=== PATIENT | male | born 1940 | race Two or more races ===

== ENCOUNTER → 2016-07-21 | Outpatient (CLI) | payer MEDICARE ==
[2016-07-21 09:09] LABS: CHOLESTEROL 187.35 mg/dL (0-200); Direct HDL 79 mg/dL (>40); TRIGLYCERIDES 316 mg/dL (<150)
[2016-07-21 09:20] LABS: DIRECT LDL 48 mg/dL (<100)
[2016-07-21 09:25] LABS: VLDL CHOLESTEROL 63.2 mg/dL (10-31)
== END ==
LOC: LAB 08:43
PROVIDERS: ATTEND Family Medicine Geriatric Medicine
DX: E78.5 Hyperlipidemia, unspecified (principal)
CPT/HCPCS: 36415; 80061

== ENCOUNTER → 2016-10-06 | Outpatient (CLI) | payer MEDICARE ==
--- NOTE | 2016-10-06 12:46 | RADIOLOGY REPORT (SQ) ---
EXAM DESCRIPTION: SHOULDER LEFT 2 OR MORE VIEWS COMPLETED DATE/TIME: 10/06/2016 12:24 pm REASON FOR STUDY: L SHOULDER PAIN M25.512 PAIN IN LEFT SHOULDER COMPARISON: None. NUMBER OF VIEWS: Three views. TECHNIQUE: Internal rotation, external rotation, and Y view images acquired of the left shoulder. LIMITATIONS: None. FINDINGS: MINERALIZATION: Normal. BONES: No fracture or dislocation. There is bony overgrowth at the acromioclavicular joint. JOINTS: No dislocation. VISUALIZED LUNGS AND RIBS: No pneumothorax. No rib fracture. SOFT TISSUES: No radiopaque foreign body. OTHER: No other significant finding. IMPRESSION: Degenerative joint changes involving the acromioclavicular joint. There is no acute abn ormality. TECHNICAL DOCUMENTATION: JOB ID: [id number] [employer]- All Rights Reserved
== END ==
LOC: RAD 12:04
PROVIDERS: ATTEND Family Medicine Geriatric Medicine
DX: M25.512 Pain in left shoulder (principal); M19.012 Primary osteoarthritis, left shoulder

== ENCOUNTER → 2017-01-07 | Outpatient (CLI) | payer MEDICARE ==
--- NOTE | 2017-01-07 13:17 | RADIOLOGY REPORT (SQ) ---
EXAM DESCRIPTION: CERV SP 4 OR 5 VIEWS COMPLETED DATE/TIME: 01/07/2017 11:40 am REASON FOR STUDY: NECK PAIN COMPARISON: None. NUMBER OF VIEWS: Five views. TECHNIQUE: AP, lateral, obliques and odontoid radiographic images acquired of the cervical spine. LIMITATIONS: None. FINDINGS: MINERALIZATION: Normal. ALIGNMENT: Anatomic. VERTEBRAE: Vertebral bodies of normal height. DISCS: Mild disc space loss of height at C3-4, C4-5, C5-6, and C6-7 FORAMINA: On the right side, there is mild foraminal narrowing at C3-4, C5-6, and C6-7 from facet and uncovertebral hypertrophy. On the left side, mild C4-5, and C6-7 foraminal narrowing is present from facet and uncovertebral hyp ertrophy. LATERAL AND POSTERIOR ELEMENTS: Facets, lateral masses and spinous processes without significant find ings. HARDWARE: None in the spine. SOFT TISSUES: No masses or calcifications. Lung apices clear. OTHER: No other significant finding. IMPRESSION: Mild degenerative changes as above TECHNICAL DOCUMENTATION: JOB ID: [id number] [employer]- All Rights Reserved
== END ==
LOC: RAD 11:20
PROVIDERS: ATTEND Family Medicine Geriatric Medicine
DX: M54.2 Cervicalgia (principal)
CPT/HCPCS: 72050

== ENCOUNTER → 2017-04-06 | Outpatient (CLI) | payer MEDICARE ==
[2017-04-06 09:15] LABS: ABSOLUTE EOSINOPHILS # (AUTO) 0.1 10^3/uL (0.0-0.6); ABSOLUTE LYMPHOCYTES (AUTO) 1.2 10^3/uL (0.5-4.7); ABSOLUTE MONOCYTES (AUTO) 0.6 10^3/uL (0.1-1.4); ABSOLUTE NEUT (AUTO) 3.9 10^3/uL (1.7-8.2); BASOPHILS % (AUTO) 0.8 % (0-2); EOSINOPHILS % (AUTO) 2.2 % (0-6); HEMATOCRIT 38.8 % (37.9-51.0); HEMOGLOBIN 12.7 g/dL (13.5-17.0); HGB HCT DIFFERENCE -0.7; LYMPHOCYTES % (AUTO) 19.7 % (13-45); MEAN CORPUSCULAR HGB CONC 32.7 g/dL (32.0-36.0); MEAN CORPUSCULAR VOLUME 83 fl (80-97); MONOCYTES % (AUTO) 10.7 % (3-13); RED CELL DISTRIBUTION WIDTH 16.2 % (11.5-14.0); SEGMENTED NEUTROPHILS % (AUTO) 66.6 % (42-78); WHITE BLOOD COUNT 5.9 10^3/uL (4.0-10.5)
[2017-04-06 09:44] LABS: ALANINE AMINOTRANSFERASE 21 U/L (21-72); ALBUMIN 4.1 g/dL (3.5-5.0); ALKALINE PHOSPHATASE 75 U/L (38-126); ANION GAP 10 (5-19); ASPARTATE AMINO TRANSFERASE 21 U/L (17-59); BILIRUBIN,DIRECT 0.3 mg/dL (0.0-0.4); BILIRUBIN,TOTAL 0.6 mg/dL (0.2-1.3); BLOOD UREA NITROGEN 9 mg/dL (7-20); CALCIUM 9.1 mg/dL (8.4-10.2); CARBON DIOXIDE 25 mmol/L (22-30); CHLORIDE 106 mmol/L (98-107); CHOLESTEROL 189.59 mg/dL (0-200); CREATININE RESULT 0.85 mg/dL (0.52-1.25); Direct HDL 91 mg/dL (>40); GLUCOSE 90 mg/dL (75-110); POTASSIUM 4.2 mmol/L (3.6-5.0); SODIUM 140.6 mmol/L (137-145); TOTAL PROTEIN 6.3 g/dL (6.3-8.2); TRIGLYCERIDES 147 mg/dL (<150); URIC ACID 5.9 mg/dL (3.5-8.5)
[2017-04-06 09:55] LABS: DIRECT LDL 81 mg/dL (<100)
[2017-04-07 09:40] LABS: CREATININE URINE 95.4 mg/dL (Not Estab.); MICROALBUMIN URINE 3.6 ug/mL (Not Estab.)
== END ==
LOC: LAB 08:47
PROVIDERS: ATTEND Family Medicine Geriatric Medicine
DX: I10 Essential (primary) hypertension (principal); E78.5 Hyperlipidemia, unspecified; E11.9 Type 2 diabetes mellitus without complications; Z79.899 Other long term (current) drug therapy; K21.0 Gastro-esophageal reflux disease with esophagitis; M19.90 Unspecified osteoarthritis, unspecified site
CPT/HCPCS: 36415; 80053; 80061; 82043; 82570; 83036; 84443; 84550; 85025

== ENCOUNTER → 2017-04-20 | Outpatient (CLI) | payer MEDICARE ==
--- NOTE | 2017-04-20 12:53 | RADIOLOGY REPORT (SQ) ---
EXAM DESCRIPTION: CHEST PA/LATERAL COMPLETED DATE/TIME: 04/20/2017 11:08 am REASON FOR STUDY: COUGH,FEVER,COPD COMPARISON: 04/03/2016 EXAM PARAMETERS: NUMBER OF VIEWS: two views TECHNIQUE: Digital Frontal and Lateral radiographic views of the chest acquired. RADIATION DOSE: NA LIMITATIONS: none FINDINGS: LUNGS AND PLEURA: The lungs are hyperexpanded. There are no infiltrates or effusions. Th ere is no mass. MEDIASTINUM AND HILAR STRUCTURES: No masses or contour abnormalities. HEART AND VASCULAR STRUCTURES: Heart normal size. No evidence for failure. BONES: No acute findings. HARDWARE: None in the chest. OTHER: No other significant finding. IMPRESSION: Chronic lung changes with no acute cardiopulmonary disease. TECHNICAL DOCUMENTATION: JOB ID: [id number] [employer]- All Rights Reserved
== END ==
LOC: OD 10:57
PROVIDERS: ATTEND Family Medicine Geriatric Medicine
DX: R50.9 Fever, unspecified (principal); J44.9 Chronic obstructive pulmonary disease, unspecified; R05 Cough
CPT/HCPCS: 71020

== ENCOUNTER 2017-07-13 22:34 | Emergency (ER) | payer MEDICARE ==
[2017-07-13] MEDS ORDERED: ONDANSETRON HCL INJ/PF 4 MG/2 ML SDV IV ONE (23:57)
[2017-07-14 00:16] LABS: ABSOLUTE LYMPHOCYTES (AUTO) 0.9 10^3/uL (0.5-4.7); ABSOLUTE MONOCYTES (AUTO) 0.6 10^3/uL (0.1-1.4); ABSOLUTE NEUT (AUTO) 4.5 10^3/uL (1.7-8.2); BASOPHILS % (AUTO) 0.5 % (0-2); EOSINOPHILS % (AUTO) 0.5 % (0-6); HEMATOCRIT 41.9 % (37.9-51.0); LYMPHOCYTES % (AUTO) 14.8 % (13-45); MEAN CORPUSCULAR HEMOGLOBIN 28.5 pg (27.0-33.4); MEAN CORPUSCULAR HGB CONC 33.4 g/dL (32.0-36.0); MEAN CORPUSCULAR VOLUME 85 fl (80-97); MONOCYTES % (AUTO) 9.6 % (3-13); PLATELET COUNT 126 10^3/uL (150-450); RED BLOOD COUNT 4.92 10^6/uL (4.35-5.55); RED CELL DISTRIBUTION WIDTH 18.3 % (11.5-14.0); SEGMENTED NEUTROPHILS % (AUTO) 74.6 % (42-78); TOTAL CELLS COUNTED % (AUTO) 100 %
[2017-07-14] MEDS ORDERED: HYDROMORPHONE HCL INJ/PF 2 MG/ML AMPULE IV ONE (00:27)
[2017-07-14 00:28] LABS: ALANINE AMINOTRANSFERASE 32 U/L (21-72); ALBUMIN 4.5 g/dL (3.5-5.0); ALKALINE PHOSPHATASE 84 U/L (38-126); ANION GAP 14 (5-19); ASPARTATE AMINO TRANSFERASE 42 U/L (17-59); BILIRUBIN,DIRECT 0.2 mg/dL (0.0-0.4); BILIRUBIN,TOTAL 0.8 mg/dL (0.2-1.3); BLOOD UREA NITROGEN 14 mg/dL (7-20); CALCIUM 9.4 mg/dL (8.4-10.2); CARBON DIOXIDE 25 mmol/L (22-30); CHLORIDE 99 mmol/L (98-107); CREATINE KINASE 146 U/L (55-170); GLUCOSE 97 mg/dL (75-110); POTASSIUM 3.8 mmol/L (3.6-5.0); SODIUM 137.7 mmol/L (137-145); TOTAL PROTEIN 6.4 g/dL (6.3-8.2)
[2017-07-14] MEDS ORDERED: PANTOPRAZOLE SODIUM 40 MG VIAL IV ONE (00:28)
--- NOTE | 2017-07-14 00:34 | ER Document Report ---
ED General - General Chief Complaint: Chest Pain Stated Complaint: CHEST PAIN Time Seen by Provider: 07/14/17 00:01 Mode of Arrival: Ambulatory Information source: Patient, Relative TRAVEL OUTSIDE OF THE [place] IN LAST 30 DAYS: No - HPI Notes: Patient is a 76-year-old male history of COPD, hypertension, one half of stomach removed due to stomach ulcer in 1967, stent left leg after trauma, presents to the emergency department with report that he drank 1-1/2 bottles of wine yesterday and developed some abdominal pain. He took Advil for his abdominal pain which made the abdominal pain worse and then he vomited today without blood after eating at about noon. The patient has had increased belching. He may have slight constipation and reports no bowel movement for the past 2 days. He describes a slight bloated sensation. He reports the pain is mainly in the abdominal region but radiates to the lower chest associated with the belching. History of colonoscopy 4 years ago [place] where they removed polyps. He also had a upper endoscopy which he thinks was negative 4 years ago. The patient is not taking acid blockers beyond taking Gas-X and [place]. Medications losartan, but he has not had any for the past 2 months as he question whether not this was causing his recurrent abdominal discomfort. He is also on Spiriva, aspirin, Ventolin, Advil and Gas-X and [place].. - Related Data Allergies/Adverse Reactions: No Known Allergies Allergy (Unverified 07/14/17 05:56) Past Medical History - General Information source: Patient - Social History Smoking Status: Former Smoker Chew tobacco use (# tins/day): No Frequency of alcohol use: Heavy Drug Abuse: None Lives with: Family Family History: Reviewed & Not Pertinent Patient has suicidal ideation: No Patient has homicidal ideation: No - Past Medical History Cardiac Medical History: Reports: Hx Hypercholesterolemia, Hx Hypertension Pulmonary Medical History: Reports: Hx COPD Renal/ Medical History: Denies: Hx Peritoneal Dialysis - Immunizations Hx Diphtheria, Pertussis, Tetanus Vaccination: Yes Review of Systems - Review of Systems Notes: REVIEW OF SYSTEMS: CONSTITUTIONAL : Denies fever, chills, or sweats. EENT: Denies eye, ear, throat, or mouth pain or symptoms. Denies nasal or sinus congestion or discharge. Denies throat, tongue, or mouth swelling or difficulty swallowing. CARDIOVASCULAR: Denies palpitations or racing or irregular heart beat. Denies ankle edema. RESPIRATORY: Denies cough, cold, or chest congestion. Denies shortness of breath, difficulty breathing, or wheezing. GASTROINTESTINAL: Denies abdominal distention. Denies diarrhea. Denies blood in vomitus, stools, or per rectum. Denies black, tarry stools. Mild chronic constipation GENITOURINARY: Denies difficulty urinating, painful urination, burning, frequency, blood in urine, or discharge. MUSCULOSKELETAL: Denies back or neck pain or stiffness. Denies joint pain or swelling. SKIN: Denies rash, lesions or sores. HEMATOLOGIC : Denies easy bruising or bleeding. LYMPHATIC: Denies swollen, enlarged glands. NEUROLOGICAL: Denies confusion or altered mental status. Denies passing out or loss of consciousness. Denies dizziness or lightheadedness. Denies headache. Denies weakness or paralysis or loss of use of either side. Denies problems with gait or speech. Denies sensory loss, numbness, or tingling. Denies seizures. PSYCHIATRIC: Denies anxiety or stress. Denies depression, suicidal ideation, or homicidal ideation. ALL OTHER SYSTEMS REVIEWED AND NEGATIVE. Dictation was performed using [employer] voice recognition software Physical Exam - Vital signs Vitals: Temp Pulse Resp BP Pulse Ox 98.0 F 97 20 172/104 H 97 07/13/17 22:53 07/13/17 22:53 07/13/17 22:53 07/13/17 22:53 07/13/17 22:53 - Notes Notes: PHYSICAL EXAMINATION: GENERAL: Well-appearing, well-nourished and in moderate discomfort mainly complaining of abdominal pain. HEAD: Atraumatic, normocephalic. EYES: Pupils equal round and reactive to light, extraocular movements intact, sclera anicteric, conjunctiva are normal. ENT: Nares patent, oropharynx clear without exudates. Moist mucous membranes. NECK: Normal range of motion, supple without lymphadenopathy LUNGS: Breath sounds clear to auscultation bilaterally and equal. No wheezes rales or rhonchi. HEART: Regular rate and rhythm with 1/6 systolic ejection murmur best auscultated over the apex. ABDOMEN: Soft, nondistended abdomen. No guarding, no rebound. No masses appreciated. Tender mainly through the upper abdomen more midline. Patient has a surgical scar to the right of midline upper abdomen from previous partial gastrectomy. Musculoskeletal: Normal range of motion, no pitting or edema. No cyanosis. NEUROLOGICAL: Cranial nerves grossly intact. Normal speech, normal gait. Normal sensory, motor exams PSYCH: Normal mood, normal affect. SKIN: Warm, Dry, normal turgor, no rashes or lesions noted. Course - Re-evaluation Re-evalutation: 07/14/17 00:35 Patient was counseled about his drinking. He denied any history of DTs. Patient was given Zofran for nausea and was given IV Protonix and Dilaudid for pain and acid reduction with improvement. 07/14/17 01:45 Urinalysis showed mild ketosis. Patient was given IV fluids. 07/14/17 06:36 Patient denied having any further chest pain, but his blood pressure remained elevated 180s-190s systolic over 90s-100 diastolic. Initial troponin was 0.03, but a repeat troponin IV hours later was 0.24, raising question of non-STEMI. On repeat exam patient Describes no chest pain. Patient was given aspirin by mouth, and he usually takes aspirin daily. The patient was given metoprolol 5 mg IV and blood pressure was stable. Patient was given metoprolol 25 mg p.o. Patient was given 1 inch nitroglycerin paste. Ativan 1 mg IV given, Although patient showed no obvious DTs. Discussion was undertaken with the patient and his family and they were in agreement with transfer to a facility with interventional cardiology capabilities, which are not available at this facility. Discussion was undertaken with Dr. Hernandez, who accepted the patient in transfer to [facility]. Stool guaiac was sent. No obvious STEMI. no anemia or Evidence for pancreatitis, or hepatitis. No evidence for pneumonia or congestive heart failure. 07/14/17 06:40 - Vital Signs Vital signs: Temp Pulse Resp BP Pulse Ox 98.0 F 97 14 177/98 H 96 07/13/17 22:53 07/13/17 22:53 07/14/17 06:04 07/14/17 06:04 07/14/17 06:04 - Laboratory Result Diagrams: 07/13/17 23:55 07/13/17 23:55 Laboratory results interpreted by me: 07/13/17 07/14/17 23:55 00:36 RDW 18.3 H Plt Count 126 L Urine Ketones TRACE H - EKG Interpretation by Me EKG shows normal: Sinus rhythm Additional EKG results interpreted by me: 07/14/17 00:34 EKG as interpreted by me showed normal sinus rhythm heart rate of 91. There is no gross evidence for acute [place] or ischemia noted. There is no significant change from previous EKG reviewed from 06/08/15. Critical Care Note - Critical Care Note Total time excluding time spent on procedures (mins): 50 Discharge - Discharge Clinical Impression: Non-STEMI (non-ST elevated myocardial infarction), Elevated troponin, Medical non-compliance Gastritis Qualifiers: Gastritis type: unspecified gastritis Chronicity: acute Gastritis bleeding: without bleeding Qualified Code(s): K29.00 - Acute gastritis without bleeding Vomiting Qualifiers: Vomiting type: unspecified Vomiting Intractability: non-intractable Nausea presence: with nausea Qualified Code(s): R11.2 - Nausea with vomiting, unspecified Chest pain Qualifiers: Chest pain type: unspecified Qualified Code(s): R07.9 - Chest pain, unspecified Hypertension Qualifiers: Hypertension type: essential hypertension Qualified Code(s): I10 - Essential ( primary) hypertension Condition: Stable Disposition: [facility] Referrals: UMU QUIROZ MD [Primary Care Provider] - Follow up as needed
[2017-07-14 00:40] LABS: CREATINE KINASE MB 3.05 ng/mL (<4.55); TROPONIN I 0.031 ng/mL
[2017-07-14 00:45] LABS: LIPASE 121.9 U/L (23-300)
[2017-07-14 00:46] LABS: ALCOHOL < 10 mg/dL (NONE DETECTED)
[2017-07-14 01:11] LABS: APPEARANCE,URINE CLEAR; BILIRUBIN,URINE NEGATIVE (NEGATIVE); COLOR,URINE STRAW; GLUCOSE, URINE NEGATIVE (NEGATIVE); KETONES,URINE TRACE mg/dL (NEGATIVE); LEUKOCYTE ESTERASE,URINE NEGATIVE (NEGATIVE); NITRITE,URINE NEGATIVE (NEGATIVE); PROTEIN,URINE NEGATIVE (NEGATIVE); URINE SPECIFIC GRAVITY 1.005; UROBILINOGEN,URINE NEGATIVE mg/dL (<2.0)
[2017-07-14] MEDS ORDERED: NORMAL SALINE 1000 ML 1,000 ML IV ONE (01:14)
--- NOTE | 2017-07-14 02:22 | RADIOLOGY REPORT (SQ) ---
EXAM DESCRIPTION: CT ABD/PELVIS WITH IV ONLY CLINICAL HISTORY: 76 years Male, abd pain, vomiting COMPARISON: 15 TECHNIQUE: 64 mL Isovue-370 contrast. Coronal and sagittal reformat. This exam was performed according to our departmental dose-optimization program, which includes automated exposure control, adjustment of the mA and/or kV according to patient size and/or use of iterative reconstruction technique. FINDINGS: No acute findings. No free fluid. Normal appendix. Left iliac stent. 1.7 cm diameter right common iliac aneurysm. Atherosclerosis. Small coronary artery calcification. Small right renal scar 2.8 cm subpleural cyst of the posterior right lung base. 7.3 cm diameter prostate. Osteotomy plate and screw fixation of the left paracentral posterior pelvic bone. Moderate L5-S1 disc desiccation. Inferior thorax, liver, gallbladder, pancreas, spleen, adrenals, renal system, gastrointestinal tract, pelvic organs, lymphatics, and musculoskeleton appear otherwise unremarkable. IMPRESSION: No acute findings. 7.3 cm enlarged prostate. 1.7 cm diameter right common iliac artery aneurysm.
[2017-07-14] MEDS ORDERED: FAMOTIDINE 20 MG TABLET PO ONE (02:24)
[2017-07-14] MEDS ORDERED: MAG HYDROX/AL HYDROX/SIMETH SUSP 30 ML UDCUP PO ONE (02:24)
--- NOTE | 2017-07-14 02:24 | RADIOLOGY REPORT (SQ) ---
EXAM DESCRIPTION: CHEST PA/LAT CLINICAL HISTORY: 76 years, Male, chest pain COMPARISON: 12.19.17. NUMBER OF VIEWS: 2 FINDINGS: Increased lung volume, clear parenchyma, normal cardiac silhouette, and intact bony thorax. IMPRESSION: No acute cardiopulmonary findings.
[2017-07-14] MEDS ORDERED: ASPIRIN 81 MG TABLET, CHEWABLE PO ONE (05:00)
[2017-07-14] MEDS ORDERED: LORAZEPAM INJ 2 MG/1 ML VIAL IV ONE (05:00)
[2017-07-14] MEDS ORDERED: METOPROLOL TARTRATE PF/INJ 5 MG/5 ML SDV IV ONE (05:01)
[2017-07-14] MEDS ORDERED: NITROGLYCERIN 2% OINTMENT 1 GM PACKET TP ONE (05:02)
[2017-07-14] MEDS ORDERED: METOPROLOL TARTRATE 50 MG TABLET PO SCH (05:45)
[2017-07-14 06:08] LABS: INTERNATIONAL RATION (INR) 0.91
[2017-07-14 07:06] VITALS: BP 170/101
--- NOTE | 2017-07-14 08:23 | EKG REPORT ---
SEVERITY:- NORMAL ECG - SINUS RHYTHM : Confirmed by: Dwayne Lorenzana MD 14-Jul-2017 08:22:25
== END 2017-07-14 07:45 | disposition short-term general hospital (02) ==
LOC: ER 22:34
DX: I21.4 Non-ST elevation (NSTEMI) myocardial infarction (principal); I10 Essential (primary) hypertension; T46.5X6A Underdosing of other antihypertensive drugs, initial encounter; Z91.128 Patient's intentional underdosing of medication regimen for other reason; Z91.14 Patient's other noncompliance with medication regimen; K29.00 Acute gastritis without bleeding; R11.2 Nausea with vomiting, unspecified; J44.9 Chronic obstructive pulmonary disease, unspecified; Z79.899 Other long term (current) drug therapy; Z79.82 Long term (current) use of aspirin; Z90.3 Acquired absence of stomach [part of]; Z87.11 Personal history of peptic ulcer disease; Z79.1 Long term (current) use of non-steroidal anti-inflammatories (NSAID); Z87.891 Personal history of nicotine dependence
CPT/HCPCS: 93005; 99291; 96361; 96374; 96375; 36415; 82553; 80307; 82550; 83690; 83735; 85025; 85610; 82272; 80053; 81001; 84484; 83880; 71046; 74177; 93010; A9270 ×3; J3490; J1170; J2060; C9113; J2405; J7030; S0164

== ENCOUNTER → 2017-08-10 | Outpatient (CLI) | payer MEDICARE ==
[2017-08-10 09:11] LABS: ABSOLUTE EOSINOPHILS # (AUTO) 0.2 10^3/uL (0.0-0.6); ABSOLUTE LYMPHOCYTES (AUTO) 1.1 10^3/uL (0.5-4.7); ABSOLUTE MONOCYTES (AUTO) 0.6 10^3/uL (0.1-1.4); ABSOLUTE NEUT (AUTO) 3.6 10^3/uL (1.7-8.2); BASOPHILS % (AUTO) 0.6 % (0-2); EOSINOPHILS % (AUTO) 3.9 % (0-6); HEMATOCRIT 41.1 % (37.9-51.0); HEMOGLOBIN 13.3 g/dL (13.5-17.0); LYMPHOCYTES % (AUTO) 19.6 % (13-45); MEAN CORPUSCULAR HEMOGLOBIN 28.4 pg (27.0-33.4); MEAN CORPUSCULAR HGB CONC 32.3 g/dL (32.0-36.0); MEAN CORPUSCULAR VOLUME 88 fl (80-97); PLATELET COUNT 169 10^3/uL (150-450); RED BLOOD COUNT 4.68 10^6/uL (4.35-5.55); RED CELL DISTRIBUTION WIDTH 16.2 % (11.5-14.0); SEGMENTED NEUTROPHILS % (AUTO) 64.9 % (42-78); TOTAL CELLS COUNTED % (AUTO) 100 %; WHITE BLOOD COUNT 5.6 10^3/uL (4.0-10.5)
[2017-08-10 09:40] LABS: ALANINE AMINOTRANSFERASE 24 U/L (21-72); ASPARTATE AMINO TRANSFERASE 23 U/L (17-59); CHOLESTEROL 149.24 mg/dL (0-200); TRIGLYCERIDES 92 mg/dL (<150)
[2017-08-10 09:51] LABS: DIRECT LDL 58 mg/dL (<100)
== END ==
LOC: LAB 08:40
PROVIDERS: ATTEND Family Medicine Geriatric Medicine
DX: D69.6 Thrombocytopenia, unspecified (principal); D64.9 Anemia, unspecified; E78.5 Hyperlipidemia, unspecified
CPT/HCPCS: 36415; 80061; 84450; 84460; 85025

== ENCOUNTER → 2018-04-06 | Outpatient (CLI) | payer MEDICARE ==
[2018-04-06 09:11] LABS: ABSOLUTE BASOPHILS # (AUTO) 0.1 10^3/uL (0.0-0.2); ABSOLUTE EOSINOPHILS # (AUTO) 0.2 10^3/uL (0.0-0.6); ABSOLUTE LYMPHOCYTES (AUTO) 1.4 10^3/uL (0.5-4.7); ABSOLUTE MONOCYTES (AUTO) 0.5 10^3/uL (0.1-1.4); ABSOLUTE NEUT (AUTO) 2.5 10^3/uL (1.7-8.2); BASOPHILS % (AUTO) 1.1 % (0-2); EOSINOPHILS % (AUTO) 3.9 % (0-6); HEMATOCRIT 38.8 % (37.9-51.0); HEMOGLOBIN 12.9 g/dL (13.5-17.0); LYMPHOCYTES % (AUTO) 29.9 % (13-45); MEAN CORPUSCULAR HEMOGLOBIN 28.6 pg (27.0-33.4); MEAN CORPUSCULAR HGB CONC 33.2 g/dL (32.0-36.0); MEAN CORPUSCULAR VOLUME 86 fl (80-97); MONOCYTES % (AUTO) 10.8 % (3-13); PLATELET COUNT 187 10^3/uL (150-450); RED BLOOD COUNT 4.51 10^6/uL (4.35-5.55); RED CELL DISTRIBUTION WIDTH 20.1 % (11.5-14.0); SEGMENTED NEUTROPHILS % (AUTO) 54.3 % (42-78); TOTAL CELLS COUNTED % (AUTO) 100 %; WHITE BLOOD COUNT 4.7 10^3/uL (4.0-10.5)
[2018-04-06 09:40] LABS: ALANINE AMINOTRANSFERASE 19 U/L (21-72); ALBUMIN 4.2 g/dL (3.5-5.0); ALKALINE PHOSPHATASE 81 U/L (38-126); ANION GAP 12 (5-19); ASPARTATE AMINO TRANSFERASE 28 U/L (17-59); BILIRUBIN,DIRECT 0.2 mg/dL (0.0-0.4); BILIRUBIN,TOTAL 0.5 mg/dL (0.2-1.3); BLOOD UREA NITROGEN 16 mg/dL (7-20); CALCIUM 9.3 mg/dL (8.4-10.2); CARBON DIOXIDE 27 mmol/L (22-30); CHLORIDE 105 mmol/L (98-107); CHOLESTEROL 153.16 mg/dL (0-200); GLUCOSE 91 mg/dL (75-110); POTASSIUM 4.7 mmol/L (3.6-5.0); SODIUM 143.5 mmol/L (137-145); TOTAL PROTEIN 6.7 g/dL (6.3-8.2); TRIGLYCERIDES 312 mg/dL (<150)
[2018-04-06 09:51] LABS: DIRECT LDL 44 mg/dL (<100)
[2018-04-06 09:54] LABS: VLDL CHOLESTEROL 62.4 mg/dL (10-31)
== END ==
LOC: LAB 08:56
PROVIDERS: ATTEND Family Medicine Geriatric Medicine
DX: E78.5 Hyperlipidemia, unspecified (principal); I25.10 Atherosclerotic heart disease of native coronary artery without angina pectoris; Z79.899 Other long term (current) drug therapy
CPT/HCPCS: 36415; 80053; 80061; 85025

== ENCOUNTER → 2018-06-08 | Outpatient (CLI) | payer MEDICARE ==
[2018-06-08 08:23] LABS: ABSOLUTE EOSINOPHILS # (AUTO) 0.2 10^3/uL (0.0-0.6); ABSOLUTE LYMPHOCYTES (AUTO) 1.1 10^3/uL (0.5-4.7); ABSOLUTE MONOCYTES (AUTO) 0.6 10^3/uL (0.1-1.4); ABSOLUTE NEUT (AUTO) 4.5 10^3/uL (1.7-8.2); BASOPHILS % (AUTO) 0.6 % (0-2); EOSINOPHILS % (AUTO) 2.9 % (0-6); HEMATOCRIT 35.8 % (37.9-51.0); HEMOGLOBIN 11.8 g/dL (13.5-17.0); LYMPHOCYTES % (AUTO) 16.9 % (13-45); MEAN CORPUSCULAR HEMOGLOBIN 28.1 pg (27.0-33.4); MEAN CORPUSCULAR VOLUME 85 fl (80-97); MONOCYTES % (AUTO) 9.9 % (3-13); PLATELET COUNT 166 10^3/uL (150-450); RED CELL DISTRIBUTION WIDTH 17.4 % (11.5-14.0); SEGMENTED NEUTROPHILS % (AUTO) 69.7 % (42-78); TOTAL CELLS COUNTED % (AUTO) 100 %; WHITE BLOOD COUNT 6.5 10^3/uL (4.0-10.5)
== END ==
LOC: LAB 07:50
PROVIDERS: ATTEND Family Medicine Geriatric Medicine
DX: I25.10 Atherosclerotic heart disease of native coronary artery without angina pectoris (principal); E78.5 Hyperlipidemia, unspecified; Z79.899 Other long term (current) drug therapy
CPT/HCPCS: 36415; 84550; 85025; 86038; 86225; 86430

== ENCOUNTER 2018-07-12 09:34 | Observation (INO) | payer MEDICARE ==
--- NOTE | 2018-07-12 10:27 | ER Document Report ---
ED Medical Screen (RME) - General Chief Complaint: Rectal Bleeding Stated Complaint: RECTAL BLEEDING Time Seen by Provider: 07/12/18 10:24 Primary Care Provider: SAMANTHA LOVE MD [Primary Care Provider] - Follow up as needed Mode of Arrival: Ambulatory Information source: Patient, [facility] Records Notes: 77-year-old male with hypertension, hyperlipidemia, COPD, known internal hemorrhoids presents with 2 days of bright red blood per rectum. Patient states bleeding is only with bowel movements. He has had prior similar symptoms. He reports a colonoscopy last year. He has shortness of breath at baseline but reports fatigue. I have greeted and performed a rapid initial assessment of this patient. A comprehensive ED assessment and evaluation of the patient, analysis of test results and completion of medical decision making process we will be contacted by additional ED providers. PHYSICAL EXAMINATION: Vital signs reviewed-hypertensive GENERAL: Well-appearing, well-nourished and in no acute distress. LUNGS: No respiratory distress Musculoskeletal: Normal range of motion NEUROLOGICAL: Normal speech, normal gait. PSYCH: Normal mood, normal affect. SKIN: Warm, Dry, normal turgor, no rashes or lesions noted. TRAVEL OUTSIDE OF THE [place] IN LAST 30 DAYS: No - HPI Onset: Yesterday Onset/Duration: Sudden Quality of pain: Achy Severity: Mild Associated Symptoms: Abdominal pain, Shortness of breath - Chronic shortness of breath. denies: Nausea, Vomiting Exacerbated by: Other - Wine Relieved by: Denies Similar symptoms previously: Yes Recently seen / treated by doctor: No - Related Data Smoking: Quit greater than 1 year Frequency of alcohol use: Occasional Drug Abuse: None Allergies/Adverse Reactions: No Known Allergies Allergy (Verified 07/12/18 10:00) Past Medical History - Social History Chew tobacco use (# tins/day): No Frequency of alcohol use: wine Drug Abuse: None - Past Medical History Cardiac Medical History: Reports: Hx Heart Attack - NSTEMI, Hx Hypercholesterolemia, Hx Hypertension Pulmonary Medical History: Reports: Hx COPD Renal/ Medical History: Denies: Hx Peritoneal Dialysis Past Surgical History: Reports: Hx Abdominal Surgery - ulcer, Hx Orthopedic Surgery - Immunizations Hx Diphtheria, Pertussis, Tetanus Vaccination: Yes Physical Exam - Vital signs Vitals: Temp Pulse Resp BP Pulse Ox 97.7 F 78 16 151/75 H 99 07/12/18 09:40 07/12/18 09:40 07/12/18 09:40 07/12/18 09:40 07/12/18 09:40 Course - Vital Signs Vital signs: Temp Pulse Resp BP Pulse Ox 97.7 F 78 16 151/75 H 99 07/12/18 09:40 07/12/18 09:40 07/12/18 09:40 07/12/18 09:40 07/12/18 09:40 Doctor's Discharge - Discharge Referrals: SAMANTHA LOVE MD [Primary Care Provider] - Follow up as needed
[2018-07-12 11:50] LABS: ABSOLUTE EOSINOPHILS # (AUTO) 0.1 10^3/uL (0.0-0.6); ABSOLUTE LYMPHOCYTES (AUTO) 1.1 10^3/uL (0.5-4.7); ABSOLUTE MONOCYTES (AUTO) 0.6 10^3/uL (0.1-1.4); ABSOLUTE NEUT (AUTO) 5.1 10^3/uL (1.7-8.2); BASOPHILS % (AUTO) 0.5 % (0-2); EOSINOPHILS % (AUTO) 1.1 % (0-6); HEMATOCRIT 38.9 % (37.9-51.0); HEMOGLOBIN 12.8 g/dL (13.5-17.0); LYMPHOCYTES % (AUTO) 15.7 % (13-45); MEAN CORPUSCULAR HEMOGLOBIN 26.8 pg (27.0-33.4); MEAN CORPUSCULAR HGB CONC 32.9 g/dL (32.0-36.0); MEAN CORPUSCULAR VOLUME 82 fl (80-97); MONOCYTES % (AUTO) 9.2 % (3-13); PLATELET COUNT 149 10^3/uL (150-450); RED BLOOD COUNT 4.77 10^6/uL (4.35-5.55); RED CELL DISTRIBUTION WIDTH 17.2 % (11.5-14.0); SEGMENTED NEUTROPHILS % (AUTO) 73.5 % (42-78); TOTAL CELLS COUNTED % (AUTO) 100 %; WHITE BLOOD COUNT 6.9 10^3/uL (4.0-10.5)
[2018-07-12 11:53] LABS: INTERNATIONAL RATION (INR) 0.88; PARTIAL THROMBOPLASTIN TIME 24.8 SEC (23.5-35.8); PROTHROMBIN TIME 12.4 SEC (11.4-15.4)
[2018-07-12 12:07] LABS: ALANINE AMINOTRANSFERASE 18 U/L (21-72); ALBUMIN 4.9 g/dL (3.5-5.0); ALKALINE PHOSPHATASE 109 U/L (38-126); ANION GAP 13 (5-19); ASPARTATE AMINO TRANSFERASE 24 U/L (17-59); BILIRUBIN,DIRECT 0.3 mg/dL (0.0-0.4); BILIRUBIN,TOTAL 1.2 mg/dL (0.2-1.3); BLOOD UREA NITROGEN 12 mg/dL (7-20); CALCIUM 9.8 mg/dL (8.4-10.2); CARBON DIOXIDE 23 mmol/L (22-30); CHLORIDE 103 mmol/L (98-107); GLUCOSE 100 mg/dL (75-110); POTASSIUM 4.2 mmol/L (3.6-5.0); SODIUM 138.6 mmol/L (137-145); TOTAL PROTEIN 7.1 g/dL (6.3-8.2)
--- NOTE | 2018-07-12 13:11 | ER Document Report ---
Entered by CAT HOLLY SCRIBE 07/12/18 1110 Acting as scribe for:ABEL BELTRÁN MD ED GI Bleed / Rectal Pain - General Chief Complaint: Rectal Bleeding Stated Complaint: RECTAL BLEEDING Time Seen by Provider: 07/12/18 10:24 Mode of Arrival: Ambulatory Information source: Patient Notes: Patient is a 77-year-old male with HTN, hyperlipidemia, COPD presents to the emergency department complaining of rectal bleeding onset yesterday. He states that he noticed bright red blood when having a bowel movement and further complains of rectal itching and burning. He states he has a history of internal hemorrhoids and he recently "pushed them back up" 3 days ago. He reports "never" having rectal bleeding before. Of significance, patient reports having a colonoscopy performed 3 years ago where polyps were removed. TRAVEL OUTSIDE OF THE [place] IN LAST 30 DAYS: No - Related Data Allergies/Adverse Reactions: No Known Allergies Allergy (Verified 07/12/18 10:00) Past Medical History - General Information source: Patient, [facility] Records - Social History Smoking Status: Former Smoker Chew tobacco use (# tins/day): No Frequency of alcohol use: wine Drug Abuse: None Family History: Reviewed & Not Pertinent Patient has suicidal ideation: No Patient has homicidal ideation: No - Past Medical History Cardiac Medical History: Reports: Hx Heart Attack - NSTEMI, Hx Hypercholesterolemia, Hx Hypertension Pulmonary Medical History: Reports: Hx COPD Past Surgical History: Reports: Hx Abdominal Surgery - ulcer, Hx Orthopedic Surgery - Immunizations Hx Diphtheria, Pertussis, Tetanus Vaccination: Yes Review of Systems - Review of Systems Constitutional: No symptoms reported EENT: No symptoms reported Cardiovascular: No symptoms reported Respiratory: No symptoms reported Gastrointestinal: See HPI, Rectal bleeding Genitourinary: No symptoms reported Male Genitourinary: No symptoms reported Musculoskeletal: No symptoms reported Skin: No symptoms reported Hematologic/Lymphatic: No symptoms reported Neurological/Psychological: No symptoms reported -: Yes All other systems reviewed and negative Physical Exam - Vital signs Vitals: Temp Pulse Resp BP Pulse Ox 97.7 F 78 16 151/75 H 99 07/12/18 09:40 07/12/18 09:40 07/12/18 09:40 07/12/18 09:40 07/12/18 09:40 - Notes Notes: GENERAL: Alert, interacts well. No acute distress. HEAD: Normocephalic, atraumatic. EYES: Pupils equal, round, and reactive to light. Extraocular movements intact. ENT: Oral mucosa moist, tongue midline. NECK: Full range of motion. Supple. Trachea midline. LUNGS: Clear to auscultation bilaterally, no wheezes, rales, or rhonchi. No respiratory distress. HEART: Regular rate and rhythm. No murmurs, gallops, or rubs. ABDOMEN: Soft, non-tender, no guarding, rigidity, or rebound.. Non-distended. Bowel sounds present in all 4 quadrants. EXTREMITIES: Moves all 4 extremities spontaneously. NEUROLOGICAL: Alert and oriented x3. Normal speech. PSYCH: Normal affect, normal mood. SKIN: Warm, dry, normal turgor. No rashes or lesions noted. RECTAL: No external hemorrhoids or fissures noted. During digital rectal exam, patient with extremely tender palpation, extreme rectal sphincter spasm, no gross blood noted. Course - Re-evaluation Re-evalutation: 07/12/18 12:17 The residue from the internal anal sphincter region was heme positive. The hemoglobin level was actually 1 g higher today than it was a month ago. - Vital Signs Vital signs: Temp Pulse Resp BP Pulse Ox 97.7 F 78 15 166/90 H 98 07/12/18 09:40 07/12/18 09:40 07/12/18 12:00 07/12/18 12:00 07/12/18 12:00 - Laboratory Result Diagrams: 07/12/18 11:00 07/12/18 11:00 Laboratory results interpreted by me: 07/12/18 07/12/18 11:00 11:00 Hgb 12.8 L MCH 26.8 L RDW 17.2 H Plt Count 149 L ALT 18 L - Consults Dr. Chacon Time consulted: 12:49 Consulted provider: will come to ER - Medical floor admission. Consult general surgery. Dr. Etienne Time consulted: 13:31 Consulted provider: will come to ER Discharge - Discharge Clinical Impression: Rectal bleeding Anemia Qualifiers: Anemia type: unspecified type Qualified Code(s): D64.9 - Anemia, unspecified Condition: Stable Disposition: ADMITTED INPATIENT Admitting Provider: Hospitalist Unit Admitted: Medical Floor Scribe Attestation: 07/12/18 11:56 I personally performed the services described in the documentation, reviewed and edited the documentation which was dictated to the scribe in my presence, and it accurately records my words and actions. I personally performed the services described in the documentation, reviewed and edited the documentation which was dictated to the scribe in my presence, and it accurately records my words and actions.
--- NOTE | 2018-07-12 13:38 | PDOC H&P ---
History of Present Illness Admission Date/PCP: 07/12/18 13:26 SAMANTHA LOVE MD History of Present Illness: YOEL WYMAN is a 77 year old male patient with past medical history of hyperten thu, hyperlipidemia, COPD presented with chief complaint of bright red blood per rectum since yesterday. Patient reports this the bleeding is moderately profuse and paleness. His H&H shows hemoglobin of 12. Patient denied any dizziness, headache, blurry vision or any seizure activity. Patient also denied any fever, chills, chest pain, palpitation or diaphoresis. No nausea vomiting or dysuria. Past Medical History Cardiac Medical History: Reports: Myocardial Infarction - NSTEMI, Hyperlipidema, Hypertension Pulmonary Medical History: Reports: Chronic Obstructive Pulmonary Disease (COPD) Past Surgical History Past Surgical History: Reports: Orthopedic Surgery Social History Smoking Status: Former Smoker - Advance Directive Resuscitation Status: Full Code Family History Family History: Reviewed & Not Pertinent Parental Family History Reviewed: Yes Children Family History Reviewed: Yes Sibling(s) Family History Reviewed.: Yes Medication/Allergy Home Medications: Aspirin [Adult Low Dose Aspirin EC] 81 mg PO DAILY 07/12/18 Atorvastatin Calcium [Lipitor 40 mg Tablet] 40 mg PO QHS 07/12/18 Pantoprazole Sodium [Protonix] 40 mg PO QHS 07/12/18 Tiotropium [place] [Spiriva Respimat] 4 gm IH DAILY 07/12/18 Allergies/Adverse Reactions: No Known Allergies Allergy (Verified 07/12/18 10:00) Review of Systems Constitutional: ABSENT: chills, fever(s), headache(s), weight gain, weight loss Eyes: ABSENT: visual disturbances Ears: ABSENT: hearing changes Cardiovascular: ABSENT: chest pain, dyspnea on exertion, edema, orthropnea, palpitations Respiratory: ABSENT: cough, hemoptysis Gastrointestinal: PRESENT: hematochezia. ABSENT: abdominal pain, constipation, diarrhea, hematemesis, nausea, vomiting Genitourinary: ABSENT: dysuria, hematuria Musculoskeletal: ABSENT: joint swelling Integumentary: ABSENT: rash, wounds Neurological: ABSENT: abnormal gait, abnormal speech, confusion, dizziness, focal weakness, syncope Psychiatric: ABSENT: anxiety, depression, homidical ideation, suicidal ideation Endocrine: ABSENT: cold intolerance, heat intolerance, polydipsia, polyuria Hematologic/Lymphatic: ABSENT: easy bleeding, easy bruising Physical Exam Vital Signs: Temp Pulse Resp BP Pulse Ox 97.7 F 78 15 166/90 H 98 07/12/18 09:40 07/12/18 09:40 07/12/18 12:00 07/12/18 12:00 07/12/18 12:00 Intake & Output 07/11/18 07/12/18 07/13/18 06:59 06:59 06:59 Weight 57.7 kg General appearance: PRESENT: no acute distress, well-developed Eye exam: PRESENT: conjunctiva pink Mouth exam: PRESENT: moist Neck exam: ABSENT: carotid bruit, JVD, lymphadenopathy, thyromegaly Respiratory exam: PRESENT: clear to auscultation tatyana. ABSENT: rales, rhonchi, w heezes Cardiovascular exam: PRESENT: RRR. ABSENT: diastolic murmur, rubs, systolic murmur GI/Abdominal exam: PRESENT: normal bowel sounds, soft. ABSENT: distended, guarding, mass, organolmegaly, rebound, tenderness Neurological exam: PRESENT: alert, awake, oriented to time, oriented to situation Results Laboratory Results: 07/12/18 11:00 07/12/18 11:00 07/12/18 07/12/18 07/12/18 11:00 11:00 11:00 WBC 6.9 RBC 4.77 Hgb 12.8 L Hct 38.9 MCV 82 MCH 26.8 L MCHC 32.9 RDW 17.2 H Plt Count 149 L Seg Neutrophils % 73.5 Lymphocytes % 15.7 Monocytes % 9.2 Eosinophils % 1.1 Basophils % 0.5 Absolute Neutrophils 5.1 Absolute Lymphocytes 1.1 Absolute Monocytes 0.6 Absolute Eosinophils 0.1 Absolute Basophils 0.0 Sodium 138.6 Potassium 4.2 Chloride 103 Carbon Dioxide 23 Anion Gap 13 BUN 12 Creatinine 0.84 Est GFR ( Amer) > 60 Est GFR (Non-Af Amer) > 60 Glucose 100 Calcium 9.8 Total Bilirubin 1.2 AST 24 ALT 18 L Alkaline Phosphatase 109 Total Protein 7.1 Albumin 4.9 Blood Type O POSITIVE Antibody Screen NEGATIVE Assessment & Plan - Diagnosis (1) Bright red blood per rectum Is this a current diagnosis for this admission?: Yes Plan: Surgical consultation made by the ER attending. Patient does not need transfusion at this point but will trend his H&H and keep him n.p.o. (2) Hypertension Qualifiers: Hypertension type: essential hypertension Qualified Code(s): I10 - Essential (primary) hypertension Is this a current diagnosis for this admission?: Yes Plan: Continue home medications (3) Hyperlipidemia Qualifiers: Hyperlipidemia type: unspecified Qualified Code(s): E78.5 - Hyperlipidemia, unspecified Is this a current diagnosis for this admission?: Yes Plan: Continue home medication (4) COPD (chronic obstructive pulmonary disease) Qualifiers: Emphysema type: unspecified Is this a current diagnosis for this admission?: Yes Plan: As needed bronchodilator.
[2018-07-12] MEDS ORDERED: DEXTROSE 40% GEL 15 GM TUBE PO PRN ×2 (13:39)
[2018-07-12] MEDS ORDERED: ONDANSETRON HCL INJ/PF 4 MG/2 ML SDV IV PRN ×2 (13:39→20:55)
[2018-07-12] MEDS ORDERED: DEXTROSE 50%-WATER 25 GM/50 ML DISP.SYRIN IV PRN ×2 (13:39)
[2018-07-12] MEDS ORDERED: GLUCAGON,HUMAN RECOMB 1 MG INJ SUBCUT PRN (13:39)
[2018-07-12] MEDS ORDERED: ACETAMINOPHEN 325 MG TABLET PO PRN (13:39)
[2018-07-12] MEDS: METOPROLOL TARTRATE 50 MG TABLET PO SCH (15:42)
[2018-07-12] MEDS: DEXTROSE 5%-NORMAL SALINE 1,000 ML IV PRN (15:42)
--- NOTE | 2018-07-12 16:28 | PDOC CONSULTATION ---
Consultation Consult Date: 07/12/18 Consult reason:: rectal bleeding History of Present Illness Admission Date/PCP: 07/12/18 13:26 SAMANTHA LOVE MD Patient complains of: blood in stool and toilet for last 2 days. not painful. hx of hemorrhoids History of Present Illness: YOEL WYMAN is a 77 year old male presents with 2 days of bleeding from rectum into toilet. non painful but turns toilet water very red. hx of hemorrhoids. never has had this type of bleeding before. no antithrombitc meds. Past Medical History Cardiac Medical History: Reports: Myocardial Infarction - NSTEMI, Hyperlipidema, Hypertension Pulmonary Medical History: Reports: Chronic Obstructive Pulmonary Disease (COPD) Past Surgical History Past Surgical History: Reports: Orthopedic Surgery, Other - exploratory laparotomy for ulcers. Social History Smoking Status: Former Smoker Cigarettes Packs Per Day: 1 Number of Years Smokin Last Time Smoked: 2008 Frequency of Alcohol Use: Heavy Hx Recreational Drug Use: No Drugs: None Hx Prescription Drug Abuse: No - Advance Directive Resuscitation Status: Full Code Family History Family History: Reviewed & Not Pertinent Parental Family History Reviewed: No Children Family History Reviewed: No Sibling(s) Family History Reviewed.: No Medication/Allergy Home Medications: Aspirin [Adult Low Dose Aspirin EC] 81 mg PO DAILY 07/12/18 Atorvastatin Calcium [Lipitor 40 mg Tablet] 40 mg PO QHS 07/12/18 Sucralfate [Carafate 1 gm Tablet] 1 gm PO QID MDD ON EMPTY STOMACH 07/12/18 Allergies/Adverse Reactions: No Known Allergies Allergy (Verified 07/12/18 10:00) Review of Systems Constitutional: PRESENT: fatigue Ears: PRESENT: as per HPI Nose, Mouth, and Throat: PRESENT: as per HPI Cardiovascular: PRESENT: chest pain - no chest pain no palaitations Gastrointestinal: PRESENT: other - no abd pain or bloating Genitourinary: PRESENT: other - no difficulty urinating Musculoskeletal: PRESENT: other - no muscle weakness. Integumentary: PRESENT: other - no skin lesions Neurological: PRESENT: other - no tremors or confusion \ no memory chnages no syncopy Hematologic/Lymphatic: PRESENT: other - no easy brusing or bleeding Allergic/Immunologic: PRESENT: other - no allergies. Physical Exam Vital Signs: Temp Pulse Resp BP Pulse Ox 97.9 F 61 16 191/78 H 100 07/12/18 14:24 07/12/18 14:24 07/12/18 14:24 07/12/18 14:24 07/12/18 14:24 Intake & Output 07/11/18 07/12/18 07/13/18 06:59 06:59 06:59 Weight 57.2 kg General appearance: PRESENT: no acute distress Head exam: PRESENT: normocephalic Eye exam: PRESENT: EOMI Ear exam: PRESENT: normal external ear exam Mouth exam: PRESENT: moist Neck exam: PRESENT: full ROM Respiratory exam: PRESENT: clear to auscultation tatyana Cardiovascular exam: PRESENT: RRR Pulses: PRESENT: normal radial pulses, normal femoral pulses Vascular exam: PRESENT: normal capillary refill GI/Abdominal exam: PRESENT: soft Rectal exam: PRESENT: deferred, other - reported as + for blood by er Extremities exam: PRESENT: full ROM Musculoskeletal exam: PRESENT: full ROM Neurological exam: PRESENT: alert, awake, oriented to person, oriented to place, oriented to time, oriented to situation Skin exam: PRESENT: dry Results Laboratory Results: 07/12/18 11:00 07/12/18 11:00 07/12/18 07/12/18 07/12/18 11:00 11:00 11:00 WBC 6.9 RBC 4.77 Hgb 12.8 L Hct 38.9 MCV 82 MCH 26.8 L MCHC 32.9 RDW 17.2 H Plt Count 149 L Seg Neutrophils % 73.5 Lymphocytes % 15.7 Monocytes % 9.2 Eosinophils % 1.1 Basophils % 0.5 Absolute Neutrophils 5.1 Absolute Lymphocytes 1.1 Absolute Monocytes 0.6 Absolute Eosinophils 0.1 Absolute Basophils 0.0 Sodium 138.6 Potassium 4.2 Chloride 103 Carbon Dioxide 23 Anion Gap 13 BUN 12 Creatinine 0.84 Est GFR ( Amer) > 60 Est GFR (Non-Af Amer) > 60 Glucose 100 Calcium 9.8 Total Bilirubin 1.2 AST 24 ALT 18 L Alkaline Phosphatase 109 Total Protein 7.1 Albumin 4.9 Blood Type O POSITIVE Antibody Screen NEGATIVE Assessment & Plan - Inpatient Certification Medical Necessity: Need for Surgery - Plan Summary Plan Summary: hematochezia, recent neg colonoscopy bright red blood per rectum suspect hemorrhoidal\ plan on eua and proctoscopy with control of hemorrhoidal bleed.
[2018-07-12] MEDS ORDERED: FENTANYL CITRATE INJ/PF 100 MCG/2 ML AMPUL ONE (18:26)
[2018-07-12] MEDS ORDERED: LIDOCAINE 2% INJ-PF (100 MG/5 ML) SYRINGE ONE (18:26)
[2018-07-12] MEDS ORDERED: MIDAZOLAM 2 MG/2 ML INJ ONE (18:26)
[2018-07-12] MEDS ORDERED: ACETAMINOPHEN 0 MG/0 ML RTUPB IV ONE (18:27)
[2018-07-12] MEDS ORDERED: PROPOFOL INJ 200 MG/20 ML VIAL IV ONE (18:27)
[2018-07-12] MEDS ORDERED: CEFAZOLIN INJ 1 GM VIAL ONE (18:59)
[2018-07-12] MEDS ORDERED: BUPIVACAINE HCL 0.5%-EPI 1:200000 INJ/PF 30 ML VIAL ONE (20:17)
[2018-07-12] MEDS ORDERED: DIPHENHYDRAMINE HCL 50 MG/ML VIAL IV PRN (20:55)
[2018-07-12] MEDS ORDERED: PROMETHAZINE HCL INJ 25 MG/1 ML VIAL IV PRN (20:55)
[2018-07-12] MEDS ORDERED: FENTANYL CITRATE INJ/PF 100 MCG/2 ML AMPUL IV PRN ×3 (20:55)
--- NOTE | 2018-07-12 21:29 | Operative Report ---
Nonrecallable Operative Report DATE OF SURGERY: 07/12/18 PREOPERATIVE DIAGNOSIS: rectal bleeding POSTOPERATIVE DIAGNOSIS: rectal bleeding OPERATION: exam under anesthesia, proctoscopy,hemorrhoidal banding SURGEON: KEYSHAWN AYOUB ANESTHESIA: LMAC TISSUE REMOVED OR ALTERED: none COMPLICATIONS: none ESTIMATED BLOOD LOSS: 5cc INTRAOPERATIVE FINDINGS: grade 3 hemorrhoids, not bleeding. procto to 30cm, normal greenish stool, no blood PROCEDURE: see dictation
--- NOTE | 2018-07-12 22:13 | OPERATIVE REPORT E ---
Operative Report NAME: YOEL WYMAN : 1940 AGE: 77Y DATE OF SURGERY: 07/12/2018 ROOM: 436 PREOPERATIVE DIAGNOSIS: RECTAL BLEEDING. POSTOPERATIVE DIAGNOSIS: GRADE 3 HEMORRHOIDS. OPERATIONS: 1. Exam under anesthesia. 2. Proctoscopy. 3. Hemorrhoidal banding. SURGEON: KEYSHAWN AYOUB M.D. INDICATIONS FOR OPERATION: This is a 77-year-old male with hypertension, hyperlipidemia and COPD, who presented to the emergency department complaining of rectal bleeding with an onset of yesterday. Noted some bright red blood per rectum when having a bowel movement and further complained of rectal itching and burning. He states that he has a history of internal hemorrhoids and recently pushed them back in. He reports never having rectal bleeding before. He underwent a colonoscopy 3 years ago, where some polyps were removed, although on further questioning, he stated that the colonoscopy was a year ago. He was scheduled for an exam under anesthesia for evaluation of the rectal bleeding and control. PROCEDURE: Patient was brought to the operating room, awake, alert, in stable condition. Placed in a jackknife position and given IV sedation throughout the procedure. The perineum and rectum were prepped and draped in the usual sterile fashion. An appropriate timeout was obtained and we began the procedure. Digital examination revealed some probable small palpable hemorrhoids at the 5 and 7 o'clock positions. There was no evidence of any rectal fissure. The anoscope was then placed into the rectum and there were some large hemorrhoids, without any evidence of bleeding, and there was greenish stool within the rectal vault, without any evidence of blood at all. I then used a proctoscope and was able to proctoscope the patient to 30 cm. There was a large amount of green soft stool. No evidence of any blood. I suctioned all the stool away and got a good examination of the rectum to 30 cm. Again, no evidence of any masses. No evidence of stigmata of bleeding above the dentate line. The proctoscope was removed and the Gilbert anoscope was then placed into the rectum. The large hemorrhoidal ekta at 5 and 7 o'clock were identified, and using the rubber band ligator, we placed 2 rubber bands, 1 on the hemorrhoid at 5 o'clock and 1 at 7 o'clock. The Gilbert anoscope was then removed and this completed the procedure. Estimated blood loss was less than 2 mL. Sponge and needle counts were correct. The patient was then placed back on the transport gurney and taken to the recovery room in stable condition. DICTATING PHYSICIAN: KEYSHAWN AYOUB M.D. [id number] PHY#: [id number] ID: [id number] JOB#: [id number] ACCT: [id number] cc:KEYSHAWN AYOUB M.D. >
[2018-07-12] MEDS: TRAMADOL HCL 50 MG TABLET PO PRN (22:38)
[2018-07-12] MEDS ORDERED: CEFAZOLIN 1 GM/D5W RTU 1 GM/50 ML RTUPB IV ONE (23:59)
[2018-07-13] MEDS: TRAMADOL HCL 50 MG TABLET PO PRN (04:09)
[2018-07-13 05:16] LABS: HEMOGLOBIN 11.5 g/dL (13.5-17.0); MEAN CORPUSCULAR HEMOGLOBIN 26.7 pg (27.0-33.4); MEAN CORPUSCULAR HGB CONC 32.9 g/dL (32.0-36.0); MEAN CORPUSCULAR VOLUME 81 fl (80-97); PLATELET COUNT 103 10^3/uL (150-450); RED BLOOD COUNT 4.32 10^6/uL (4.35-5.55); RED CELL DISTRIBUTION WIDTH 17.4 % (11.5-14.0); WHITE BLOOD COUNT 6.4 10^3/uL (4.0-10.5)
[2018-07-13 05:42] LABS: ANION GAP 6 (5-19); BLOOD UREA NITROGEN 11 mg/dL (7-20); CALCIUM 9.6 mg/dL (8.4-10.2); CARBON DIOXIDE 26 mmol/L (22-30); CHLORIDE 103 mmol/L (98-107); GLUCOSE 101 mg/dL (75-110); POTASSIUM 4.6 mmol/L (3.6-5.0); SODIUM 135.2 mmol/L (137-145)
[2018-07-13] MEDS: METOPROLOL TARTRATE 50 MG TABLET PO SCH (06:06)
[2018-07-13] MEDS: DEXTROSE 5%-NORMAL SALINE 1,000 ML IV PRN (06:08)
[2018-07-13] MEDS ORDERED: HYDROCORTISONE ACETATE 25 MG SUPP.RECT PR PRN (06:51)
[2018-07-13] MEDS ORDERED: OXYCODONE-ACETAMINOPHEN 5-325 MG TABLET PO PRN ×2 (06:52→06:53)
--- NOTE | 2018-07-13 07:46 | EKG REPORT ---
SEVERITY:- BORDERLINE ECG - SINUS RHYTHM BORDERLINE T ABNORMALITIES, ANT-LAT LEADS : Confirmed by: Dwayne Lorenzana MD 13-Jul-2018 07:45:31
--- NOTE | 2018-07-13 12:37 | PDOC PROGRESS REPORT ---
Subjective Progress Note for:: 07/13/18 Subjective:: This is a 77-year-old male status post rubber band ligation of internal hemorrhoids. The patient is doing well today. He does report mild discomfort in the anorectal area. He has a small amount of blood spotting when having a bowel movement. There is no large amount of bleeding present. The patient denies fevers, chills, dizziness, orthostasis, fatigue, malaise, chest pain, shortness of breath, abdominal pain. Reason For Visit: BRIGHT RED BLOOD PER RECTUM Physical Exam Vital Signs: Temp Pulse Resp BP Pulse Ox 97.6 F 55 L 17 108/60 97 07/13/18 10:54 07/13/18 10:54 07/13/18 10:54 07/13/18 10:54 07/13/18 10:54 Intake & Output 07/12/18 07/13/18 07/14/18 06:59 06:59 06:59 Intake Total 2490 Balance 2490 Weight 57 kg General appearance: PRESENT: no acute distress, cooperative Head exam: PRESENT: atraumatic, normocephalic Eye exam: PRESENT: EOMI, PERRLA. ABSENT: scleral icterus Mouth exam: PRESENT: moist, neck supple Neck exam: ABSENT: meningismus, tenderness, thyromegaly, tracheal deviation Respiratory exam: PRESENT: unlabored. ABSENT: chest wall tenderness, tachypnea, wheezes Pulses: PRESENT: normal radial pulses GI/Abdominal exam: PRESENT: soft. ABSENT: distended, firm, guarding, tenderness Rectal exam: PRESENT: deferred Extremities exam: ABSENT: clubbing Musculoskeletal exam: ABSENT: deformity Neurological exam: PRESENT: alert, awake, oriented to person, oriented to place, oriented to time, oriented to situation, CN II-XII grossly intact Psychiatric exam: ABSENT: agitated, anxious, depressed Focused psych exam: ABSENT: delusional Skin exam: ABSENT: cyanosis, erythema, jaundice Results Laboratory Results: 07/13/18 04:04 07/13/18 04:04 07/13/18 07/13/18 04:04 04:04 WBC 6.4 RBC 4.32 L Hgb 11.5 L Hct 35.0 L MCV 81 MCH 26.7 L MCHC 32.9 RDW 17.4 H Plt Count 103 L Sodium 135.2 L Potassium 4.6 Chloride 103 Carbon Dioxide 26 Anion Gap 6 BUN 11 Creatinine 0.74 Est GFR ( Amer) > 60 Est GFR (Non-Af Amer) > 60 Glucose 101 Calcium 9.6 Assessment & Plan - Diagnosis (1) Internal hemorrhoids with complication Is this a current diagnosis for this admission?: Yes (2) Bright red blood per rectum Is this a current diagnosis for this admission?: Yes - Plan Summary Plan Summary: This is a 77-year-old male with chronic constipation and bleeding internal hemorrhoids. The patient is status post rubber band ligation of these hemorrhoids. I have recommended that the patient perform sits baths as needed. He should also start a fiber supplement twice daily and use stool softeners as needed. I will prescribe 5% lidocaine ointment to be used per rectum 3 times daily for pain. I will have the patient follow-up with [place] [facility] in 2-3 weeks to monitor his symptoms. I will see the patient again on an as- needed basis. Please renotify with any questions or concerns.
[2018-07-13 13:09] LABS: HEMATOCRIT 35.1 % (37.9-51.0); HEMOGLOBIN 11.5 g/dL (13.5-17.0); MEAN CORPUSCULAR HEMOGLOBIN 26.9 pg (27.0-33.4); MEAN CORPUSCULAR HGB CONC 32.7 g/dL (32.0-36.0); MEAN CORPUSCULAR VOLUME 82 fl (80-97); PLATELET COUNT 124 10^3/uL (150-450); RED BLOOD COUNT 4.28 10^6/uL (4.35-5.55); RED CELL DISTRIBUTION WIDTH 17.4 % (11.5-14.0); WHITE BLOOD COUNT 9.3 10^3/uL (4.0-10.5)
[2018-07-13 13:48] VITALS: BP 142/71
--- NOTE | 2018-07-13 16:13 | PDOC DISCHARGE SUMMARY ---
General - Admit/Disc Date/PCP Admission Date/Primary Care Provider: 07/12/18 13:26 SAMANTHA LOVE MD Discharge Date: 07/13/18 - Discharge Diagnosis (1) Bright red blood per rectum Is this a current diagnosis for this admission?: Yes Summary: Secondary to internal hemorrhoids. Now status post rubber band ligation 07/12/[address] Etienne. The patient reports his bleeding has resolved. Hemoglobin now stable at 11.5. Recommend increased water intake, dietary fiber, fiber supplements, stool softeners as needed. Avoid straining. Follow-up with the primary care provider within 1 week and with the [place] [facility] in 2-3 weeks. Return to emergency department as needed for any concerning symptoms. (2) COPD (chronic obstructive pulmonary disease) Is this a current diagnosis for this admission?: Yes Summary: Stable and without exacerbation. (3) Hyperlipidemia Is this a current diagnosis for this admission?: Yes Summary: Continue home dose atorvastatin. (4) Hypertension Is this a current diagnosis for this admission?: Yes Summary: Continue home medication regiment. (5) Internal hemorrhoids with complication Is this a current diagnosis for this admission?: Yes Summary: Patient with internal hemorrhoids secondary to chronic constipation resulting in bright red blood per rectum. He is status post rubber band ligation of these hemorrhoids. He is recommended to increase his fluid and dietary fiber intake. He is recommended to start a twice daily fiber supplement with stool softeners as needed. He is provided a prescriptions for Anusol suppositories. Red flags/warning signs are discussed; he is advised to return to the emergency department as needed for any concerning symptoms. Otherwise, the patient is to follow-up with his primary care provider within 1 week and with the [place] [facility] in 2-3 weeks. - Additional Information Resuscitation Status: Full Code Discharge Diet: Regular, Other (Comments) Discharge Activity: Activity As Tolerated, Balance Activity w/Rest, Slowly Increase Activity Prescriptions: Hydrocortisone Acetate [Anusol Hc 25 mg Supp.rect] 25 mg [place] BIDP PRN #10 supp.rect PRN Reason: Oxycodone HCl/Acetaminophen [Percocet 5-325 mg Tablet] 1 tab PO Q6HP PRN #12 tablet PRN Reason: Wheat Dextrin [Benefiber] 1 each PO DAILY #30 powd.pack Home Medications: Aspirin [Adult Low Dose Aspirin EC] 81 mg PO DAILY 07/12/18 Atorvastatin Calcium [Lipitor 40 mg Tablet] 40 mg PO QHS 07/12/18 Sucralfate [Carafate 1 gm Tablet] 1 gm PO QID MDD ON EMPTY STOMACH 07/12/18 Acetaminophen [Tylenol 325 mg Tablet] 650 mg PO Q4HP PRN tablet 07/13/18 Hydrocortisone Acetate [Anusol Hc 25 mg Supp.rect] 25 mg [place] BIDP PRN #10 supp.rect 07/13/18 Oxycodone HCl/Acetaminophen [Percocet 5-325 mg Tablet] 1 tab PO Q6HP PRN #12 tab let 07/13/18 Wheat Dextrin [Benefiber] 1 each PO DAILY #30 powd.pack 07/13/18 History of Present Illness History of Present Illness: Per H&P by Dr. Roth: YOEL WYMAN is a 77 year old male patient with past medical history of hypertension, hyperlipidemia, COPD presented with chief complaint of bright red blood per rectum since yesterday. Patient reports this the bleeding is moderately profuse and paleness. His H&H shows hemoglobin of 12. Patient denied any dizziness, headache, blurry vision or any seizure activity. Patient also denied any fever, chills, chest pain, palpitation or diaphoresis. No nausea vomiting or dysuria. Physical Exam Vital Signs: Temp Pulse Resp BP Pulse Ox 97.6 F 55 L 17 142/71 H 97 07/13/18 13:30 07/13/18 13:30 07/13/18 13:30 07/13/18 13:30 07/13/18 13:30 Intake & Output 07/12/18 07/13/18 07/14/18 06:59 06:59 06:59 Intake Total 2490 630 Balance 2490 630 Weight 57 kg General appearance: PRESENT: no acute distress, cooperative, thin, well- developed, well-nourished Head exam: PRESENT: atraumatic, normocephalic Eye exam: PRESENT: conjunctiva pink, EOMI, PERRLA. ABSENT: scleral icterus Mouth exam: PRESENT: moist, tongue midline Respiratory exam: PRESENT: clear to auscultation tatyana, symmetrical, unlabored. ABSENT: rales, rhonchi, wheezes Cardiovascular exam: PRESENT: RRR. ABSENT: diastolic murmur, rubs, systolic murmur Vascular exam: PRESENT: normal capillary refill GI/Abdominal exam: PRESENT: normal bowel sounds, soft. ABSENT: distended, guarding, mass, organolmegaly, rebound, tenderness Rectal exam: PRESENT: deferred Extremities exam: PRESENT: full ROM. ABSENT: calf tenderness, clubbing, pedal edema Neurological exam: PRESENT: alert, awake, oriented to person, oriented to place, oriented to time, oriented to situation, CN II-XII grossly intact. ABSENT: motor sensory deficit Psychiatric exam: PRESENT: appropriate affect, normal mood. ABSENT: homicidal ideation, suicidal ideation Skin exam: PRESENT: dry, intact, warm. ABSENT: cyanosis, rash Results Laboratory Results: 07/13/18 12:50 07/13/18 04:04 07/13/18 07/13/18 07/13/18 04:04 04:04 12:50 WBC 6.4 9.3 RBC 4.32 L 4.28 L Hgb 11.5 L 11.5 L Hct 35.0 L 35.1 L MCV 81 82 MCH 26.7 L 26.9 L MCHC 32.9 32.7 RDW 17.4 H 17.4 H Plt Count 103 L 124 L Sodium 135.2 L Potassium 4.6 Chloride 103 Carbon Dioxide 26 Anion Gap 6 BUN 11 Creatinine 0.74 Est GFR ( Amer) > 60 Est GFR (Non-Af Amer) > 60 Glucose 101 Calcium 9.6 Qualifiers - * PATIENT BEING DISCHARGED WITH ANY OF THE FOLLOWING DIAGNOSIS: No Plan Discharge Plan: Patient is discharged home into self-care. Declines home health nursing needs. He is advised to follow-up with his primary care provider within 1 week. He is instructed to follow-up with the [place] [facility] within 2-3 weeks. Report to the emergency department for any concerning symptoms. Time Spent: Less than 30 Minutes
== END 2018-07-13 14:15 | disposition home or self-care (01) ==
LOC: ER 09:34 → INTOOBSV 13:26 → EH 13:26 → 4S 14:23
PROVIDERS: ADMIT Internal Medicine; ATTEND Internal Medicine
PROC: 06LY4CC Occlusion of Hemorrhoidal Plexus with Extraluminal Device, Percutaneous Endoscopic Approach (ICD-10-PCS; principal; 2018-07-12 18:30)
DX: K64.2 Third degree hemorrhoids (principal); D64.9 Anemia, unspecified; J44.9 Chronic obstructive pulmonary disease, unspecified; E78.5 Hyperlipidemia, unspecified; I10 Essential (primary) hypertension; K59.09 Other constipation; R53.83 Other fatigue; R06.02 Shortness of breath; R10.9 Unspecified abdominal pain; Z79.82 Long term (current) use of aspirin; Z79.899 Other long term (current) drug therapy; Z87.891 Personal history of nicotine dependence; Z87.11 Personal history of peptic ulcer disease; Z98.890 Other specified postprocedural states; Z86.010 Personal history of colon polyps
CPT/HCPCS: 99284; 86900; 86901; 36415 ×2; 86850; 85025; 85027; 85610; 85730; 80048; 80053; 93005; 93010; 46221; G0378 ×2; J2250; J3490 ×3; J0690 ×2; J3010; J2001; A9270 ×5; J2405; J2704; 902; J0131

== ENCOUNTER → 2018-07-20 | Outpatient (CLI) | payer MEDICARE | LOC: LAB 08:38 | PROVIDERS: ATTEND Family Medicine Geriatric Medicine | DX: D64.9 Anemia, unspecified (principal); Z53.8 Procedure and treatment not carried out for other reasons ==

== ENCOUNTER 2018-09-06 17:29 | Inpatient (IN) | payer MEDICARE ==
--- NOTE | 2018-09-06 18:24 | ER Document Report ---
ED Medical Screen (RME) - General Chief Complaint: Dizziness Stated Complaint: DIZZINESS Time Seen by Provider: 09/06/18 18:15 Primary Care Provider: SAMANTHA LOVE MD [Primary Care Provider] - Follow up as needed Mode of Arrival: Wheelchair Information source: Patient Notes: Patient presents to the emergency department with generalized abdominal pain weakness. Reports black stools for the past 3 days. Reports 3 bowel movements in 3 days. Reports each stool became darker. Today he had a large bowel movement which was very dark and foul-smelling. Has history of ulcers in 1966 which had to be repaired. Also has history of COPD emphysema. Daughter also reports the patient has history of large intake of EtOH. Denies fever vomiting diarrhea. I have greeted and performed a rapid initial assessment of this patient. A comprehensive ED assessment and evaluation of the patient, analysis of test results and completion of the medical decision making process will be conducted by additional ED providers. Dictation of this chart was performed using voice recognition software; therefore, there may be some unintended grammatical errors. TRAVEL OUTSIDE OF THE [place] IN LAST 30 DAYS: No - Related Data Allergies/Adverse Reactions: No Known Allergies Allergy (Verified 09/06/18 18:15) Past Medical History - Past Medical History Cardiac Medical History: Reports: Hx Heart Attack - NSTEMI, Hx Hypercholesterolemia, Hx Hypertension Pulmonary Medical History: Reports: Hx COPD Renal/ Medical History: Denies: Hx Peritoneal Dialysis Past Surgical History: Reports: Hx Abdominal Surgery - ulcer, Hx Orthopedic Surgery, Other - exploratory laparotomy for ulcers. - Immunizations Hx Diphtheria, Pertussis, Tetanus Vaccination: Yes Physical Exam - Vital signs Vitals: Temp Pulse Resp BP Pulse Ox 97.9 F 71 14 161/84 H 98 09/06/18 17:35 09/06/18 17:35 09/06/18 17:35 09/06/18 17:35 09/06/18 17:35 Course - Vital Signs Vital signs: Temp Pulse Resp BP Pulse Ox 97.9 F 71 14 161/84 H 98 09/06/18 17:35 09/06/18 17:35 09/06/18 17:35 09/06/18 17:35 09/06/18 17:35 Doctor's Discharge - Discharge Referrals: SAMANTHA LOVE MD [Primary Care Provider] - Follow up as needed
[2018-09-06 19:20] LABS: ABSOLUTE EOSINOPHILS # (AUTO) 0.2 10^3/uL (0.0-0.6); ABSOLUTE LYMPHOCYTES (AUTO) 1.4 10^3/uL (0.5-4.7); ABSOLUTE MONOCYTES (AUTO) 0.6 10^3/uL (0.1-1.4); ABSOLUTE NEUT (AUTO) 4.4 10^3/uL (1.7-8.2); BASOPHILS % (AUTO) 0.7 % (0-2); EOSINOPHILS % (AUTO) 2.4 % (0-6); HEMATOCRIT 32.7 % (37.9-51.0); HEMOGLOBIN 10.4 g/dL (13.5-17.0); LYMPHOCYTES % (AUTO) 21.6 % (13-45); MEAN CORPUSCULAR HEMOGLOBIN 24.5 pg (27.0-33.4); MEAN CORPUSCULAR HGB CONC 31.8 g/dL (32.0-36.0); MEAN CORPUSCULAR VOLUME 77 fl (80-97); MONOCYTES % (AUTO) 9.2 % (3-13); PLATELET COUNT 182 10^3/uL (150-450); RED BLOOD COUNT 4.25 10^6/uL (4.35-5.55); RED CELL DISTRIBUTION WIDTH 17.9 % (11.5-14.0); SEGMENTED NEUTROPHILS % (AUTO) 66.1 % (42-78); TOTAL CELLS COUNTED % (AUTO) 100 %; WHITE BLOOD COUNT 6.7 10^3/uL (4.0-10.5)
[2018-09-06 19:42] LABS: ALANINE AMINOTRANSFERASE 25 U/L (21-72); ALBUMIN 4.4 g/dL (3.5-5.0); ALKALINE PHOSPHATASE 94 U/L (38-126); ANION GAP 11 (5-19); ASPARTATE AMINO TRANSFERASE 23 U/L (17-59); BILIRUBIN,DIRECT 0.2 mg/dL (0.0-0.4); BILIRUBIN,TOTAL 0.4 mg/dL (0.2-1.3); BLOOD UREA NITROGEN 22 mg/dL (7-20); CALCIUM 9.6 mg/dL (8.4-10.2); CARBON DIOXIDE 25 mmol/L (22-30); CHLORIDE 104 mmol/L (98-107); GLUCOSE 91 mg/dL (75-110); POTASSIUM 4.4 mmol/L (3.6-5.0); SODIUM 139.9 mmol/L (137-145)
[2018-09-06 19:44] LABS: ALCOHOL < 10 mg/dL (NONE DETECTED)
[2018-09-06 20:01] LABS: APPEARANCE,URINE CLEAR; BILIRUBIN,URINE NEGATIVE (NEGATIVE); COLOR,URINE YELLOW; GLUCOSE, URINE NEGATIVE (NEGATIVE); KETONES,URINE TRACE mg/dL (NEGATIVE); LEUKOCYTE ESTERASE,URINE NEGATIVE (NEGATIVE); NITRITE,URINE NEGATIVE (NEGATIVE); PROTEIN,URINE NEGATIVE (NEGATIVE); URINE SPECIFIC GRAVITY 1.012; UROBILINOGEN,URINE NEGATIVE mg/dL (<2.0)
--- NOTE | 2018-09-06 21:17 | ER Document Report ---
ED General - General Chief Complaint: Dizziness Stated Complaint: DIZZINESS Time Seen by Provider: 09/06/18 18:15 Mode of Arrival: Wheelchair TRAVEL OUTSIDE OF THE [place] IN LAST 30 DAYS: No - HPI Notes: Patient is a 77-year-old male who presents to the emergency department with a 3- day history of dark stools. She states that he was admitted into the hospital about 1 month ago for hemorrhoids which were banded. Patient states that he had been doing fine until 3 days ago. Patient complains of generalized abdominal pain, decreased appetite. Patient states that his last bowel movement was this morning which was soft and dark in color. Patient denies any obvious blood. Maged peterson does have a history of alcohol abuse, states that he quit 1 month ago but prior had been drinking 1 bottle of wine per day. Patient is on an 81 mg aspirin. Patient denies other blood thinners. Patient does state that he has a history of severe acid reflux which he controls with [id number] medications. Patient was placed on MiraLAX after his hemorrhoid procedure in July but has not been taking it. Patient does state every time he eats he has generalized abdominal pain. She denies fevers. - Related Data Allergies/Adverse Reactions: No Known Allergies Allergy (Verified 09/06/18 18:15) Past Medical History - General Information source: Patient - Social History Smoking Status: Smoker,Current Status Unk Cigarette use (# per day): No Frequency of alcohol use: Heavy - Quit one month ago; reports drinking atleast one bottle of wine per day prior Drug Abuse: None Lives with: Spouse/Significant other Family History: Reviewed & Not Pertinent Patient has suicidal ideation: No Patient has homicidal ideation: No - Past Medical History Cardiac Medical History: Reports: Hx Heart Attack - NSTEMI, Hx Hypercholesterol emia, Hx Hypertension Pulmonary Medical History: Reports: Hx COPD Renal/ Medical History: Denies: Hx Peritoneal Dialysis Past Surgical History: Reports: Hx Abdominal Surgery - ulcer, Hx Orthopedic Surgery, Other - exploratory laparotomy for ulcers. - Immunizations Hx Diphtheria, Pertussis, Tetanus Vaccination: Yes Physical Exam - Vital signs Vitals: Temp Pulse Resp BP Pulse Ox 97.9 F 71 14 161/84 H 98 09/06/18 17:35 09/06/18 17:35 09/06/18 17:35 09/06/18 17:35 09/06/18 17:35 Interpretation: Hypertensive - Notes Notes: GENERAL: Well-appearing, well-nourished and in no acute distress. HEAD: Atraumatic, normocephalic. EYES: Pupils equal round and reactive to light, extraocular movements intact, sclera anicteric, conjunctiva are normal. ENT: Moist mucous membranes. NECK: Normal range of motion, supple without lymphadenopathy or JVD. LUNGS: Breath sounds clear to auscultation bilaterally and equal. No wheezes rales or rhonchi. HEART: Regular rate and rhythm without murmurs, rubs or gallops. ABDOMEN: Soft, mildy tender throughout abdomen, hyperactive bowel sounds. No guarding, no rebound. No masses appreciated. Old healed scar noted to the right of the umbilicus. EXTREMITIES: Normal range of motion, no pitting or edema. No clubbing or cyanosis. NEUROLOGICAL: Cranial nerves II through XII grossly intact. Normal speech, normal gait. PSYCH: Normal mood, normal affect. SKIN: Warm, Dry, normal turgor, no rashes or lesions noted. Course - Re-evaluation Re-evalutation: 09/06/18 21:23 After initial evaluation patient has generalized abdominal pain is tender throughout. Will obtain abdominal CT with IV contrast. We will also perform a rectal exam. Patient does report a history of alcohol abuse, states he quit 1 month ago, at that time he was drinking at least a bottle of wine per day. Will obtain a lipase as well. 09/06/18 23:11 A rectal exam was performed. No external hemorrhoids noted or blood on the outside of the rectum. No palpable mass or internal hemorrhoids were noted. Patient was Hemoccult positive in his stool. Patient denies pain at this time. States that he is hungry. Is resting comfortably on stretcher. Patient states he has not had a bowel movement since being in the emergency department. Due to patient's positive Hemoccult during his rectal exam, history of gastric ulcers as well as gastritis and acid reflux, a one point drop in his hemoglobin, and his history of alcohol abuse I do believe this patient needs to be admitted for serial hemoglobins as well as a gastroenterology consult for possible EGD. 1122: Spoke with Dr. Hsu regarding admission. Would like me to call Surgicalist prior to agreeing to admit as they were consulted on the patient's GI bleed last time. 1126: Spoke with Dr. Etienne. Due to patient's symptoms that are consistent with an upper GI bleed he believes that patient needs to be admitted to the hospitalist service. 1132: Spoke with Dr. Varma regarding test results, CT scan and need for admission. Protonix has been ordered and she agrees with treatment plan at this time and need for admission. 1148: Spoke with Dr. Warren who agreed to scope patient tomorrow if needed. 1155: Spoke with Dr. Duffy who agrees to admit. Aware that Dr. Warren would consult on patient. Updated patient and 2 daughters at bedside on the plan for admission. Daughters verbalized concern for possible liver involvement as they believe he drinks more alcohol than what he is stating. Patient states that he has not drink alcohol in 1 month but prior to that he did drink at least 1 bottle of wine per day. Patient also reports that he is noncompliant with his acid reflux medicine as he states he does not think he needs it. He was given Protonix in the past to take but stopped. - Vital Signs Vital signs: Temp Pulse Resp BP Pulse Ox 97.5 F 64 19 125/56 L 100 09/07/18 03:45 09/07/18 03:45 09/07/18 03:45 09/07/18 03:45 09/07/18 03:45 - Laboratory Result Diagrams: 09/07/18 05:00 09/07/18 05:00 Laboratory results interpreted by me: 09/06/18 09/06/18 09/06/18 18:59 18:59 18:59 RBC 4.25 L Hgb 10.4 L Hct 32.7 L MCV 77 L MCH 24.5 L MCHC 31.8 L RDW 17.9 H BUN 22 H Iron 26.2 L TIBC 468 H Ferritin 6.88 L Vitamin B12 190.0 L Urine Ketones 09/06/18 19:18 RBC Hgb Hct MCV MCH MCHC RDW BUN Iron TIBC Ferritin Vitamin B12 Urine Ketones TRACE H 09/07/18 Patient's hemoglobin is 10.4. In July 2018 his hemoglobin was 11.5. We will add coags and type and screen. - Diagnostic Test Radiology reviewed: Reports reviewed Discharge - Discharge Clinical Impression: Upper GI bleed, Abdominal pain Condition: Stable Disposition: ADMITTED INPATIENT Admitting Provider: Shadi (Hospitalist) Unit Admitted: Telemetry
--- NOTE | 2018-09-06 22:37 | RADIOLOGY REPORT (SQ) ---
EXAM DESCRIPTION: CT ABDOMEN PELVIS WITH IV CONTRAST COMPLETED DATE/TME: 09/06/2018 21:20 CLINICAL HISTORY: 77 years, Male, abdominal pain EXAM DESCRIPTION: CLINICAL HISTORY: abdominal pain COMPARISON: None Available TECHNIQUE: Contiguous axial images of the abdomen and pelvis were obtained after the administration of intravenous contrast followed by reconstruction images.This exam was performed according to our departmental dose-optimization program, which includes automated exposure control, adjustment of the mA and/or kV according to patient size and/or use of iterative reconstruction technique. FINDINGS: Multiple loops of gas-filled small bowel are moderately dilated. There is fairly gradual tapering of small bowel caliber in the midline well seen on images 18 through 27 of series 601, coronal reconstructions. No mural mass is identified with a caliber decreases and transition is not is abrupt as might be expected for volvulus or postoperative adhesion. This could be a transient ileus but follow-up is recommended if symptoms persist. No significant bowel wall thickening is seen at this location or elsewhere. There are postsurgical changes. The heart is mildly enlarged. There is scarring of the posterior right kidney. The prostate is heterogeneous and enlarged. There is severe emphysema bilaterally. No pneumothorax. Vascular stent is present. No evidence of renal collecting system obstruction on either side. There is no hydronephrosis. The gallbladder is well distended but otherwise unremarkable. Adrenal glands are within normal limits. Aorta is normal in caliber and tapering. No significant free fluid. No free air. No bowel obstruction. There is no stranding of the mesenteric fat. IMPRESSION: Possible transient ileus, but follow-up is recommended if pain persists. Mild cardiomegaly. Severe emphysema.
[2018-09-06] MEDS ORDERED: PANTOPRAZOLE SODIUM 40 MG VIAL IV ONE (23:19)
[2018-09-06] MEDS ORDERED: PANTOPRAZOLE SODIUM 40 MG VIAL IV PRN (23:20)
[2018-09-06] MEDS ORDERED: IPRATROPIUM/ALBUTEROL 0.5-2.5 MG/3 ML AMPUL NEB PRN (23:56)
[2018-09-06] MEDS ORDERED: ONDANSETRON HCL INJ/PF 4 MG/2 ML SDV IV PRN (23:56)
[2018-09-06 23:57] LABS: INTERNATIONAL RATION (INR) 0.98; PROTHROMBIN TIME 13.5 SEC (11.4-15.4)
[2018-09-06 23:58] LABS: PARTIAL THROMBOPLASTIN TIME 26.2 SEC (23.5-35.8)
[2018-09-07] MEDS ORDERED: ATORVASTATIN CALCIUM 40 MG TABLET PO ONE (00:20)
[2018-09-07 00:33] LABS: ABSOLUTE RETICS # 0.077 10^6/uL (0.028-0.122)
[2018-09-07 00:47] LABS: IRON(TIBC) 26.2 ug/dL (49-181)
[2018-09-07 01:25] LABS: FERRITIN 6.88 ng/mL (17.9-464.0)
--- NOTE | 2018-09-07 05:12 | PDOC H&P ---
History of Present Illness Admission Date/PCP: 09/07/18 00:03 SAMANTHA LOVE MD Patient complains of: Fatigue and weakness History of Present Illness: YOEL WYMAN is a 77 year old male with a past medical history of severe emphysema, alcohol dependence without withdrawal, alcohol-related gastritis, remote peptic ulcer disease with partial gastrectomy and internal hemorrhoids with banding 2 months ago. Patient presents with diffuse abdominal pain both in the epigastrium as well as left lower quadrant associated with nausea without vomiting, dark stools and a single episode of diarrhea prompting evaluation emergency room where he is found to have a hemoglobin 10.4 from 11.52 months ago. Occult stool was positive. He is placed on IV Protonix and referred to the hospitalist for admission. Patient denies new medication or NSAID use but admits persistent alcohol dependence consuming 1 bottle of wine per day. Past Medical History Cardiac Medical History: Reports: Myocardial Infarction - NSTEMI, Hyperlipidema, Hypertension Pulmonary Medical History: Reports: Chronic Obstructive Pulmonary Disease (COPD) Psychiatric Medical History: Reports: Alcohol Dependency Past Surgical History Past Surgical History: Reports: Orthopedic Surgery, Other - exploratory laparotomy for ulcers. Social History Information Source: Patient Smoking Status: Smoker,Current Status Unk Frequency of Alcohol Use: Heavy Hx Recreational Drug Use: No Drugs: None Hx Prescription Drug Abuse: No - Advance Directive Resuscitation Status: Full Code Family History Family History: COPD, CVA - Father with aneurysm, Malignancy - Mother with uterine cancer Parental Family History Reviewed: Yes Children Family History Reviewed: Yes Sibling(s) Family History Reviewed.: Yes Medication/Allergy Home Medications: Aspirin [Adult Low Dose Aspirin EC] 81 mg PO DAILY 07/12/18 Atorvastatin Calcium [Lipitor 40 mg Tablet] 40 mg PO QHS 07/12/18 Sucralfate [Carafate 1 gm Tablet] 1 gm PO QID MDD ON EMPTY STOMACH 07/12/18 Acetaminophen [Tylenol 325 mg Tablet] 650 mg PO Q4HP PRN tablet 07/13/18 Hydrocortisone Acetate [Anusol Hc 25 mg Supp.rect] 25 mg AL BIDP PRN #10 supp.rect 07/13/18 Oxycodone HCl/Acetaminophen [Percocet 5-325 mg Tablet] 1 tab PO Q6HP PRN #12 tablet 07/13/18 Wheat Dextrin [Benefiber] 1 each PO DAILY #30 powd.pack 07/13/18 Allergies/Adverse Reactions: No Known Allergies Allergy (Verified 09/06/18 18:15) Review of Systems Constitutional: PRESENT: as per HPI, fatigue, weakness, weight loss - 20 pounds in 6 months. ABSENT: chills, fever(s), headache(s), weight gain Eyes: ABSENT: visual disturbances Ears: ABSENT: hearing changes Cardiovascular: ABSENT: chest pain, dyspnea on exertion, edema, orthropnea, palpitations Respiratory: ABSENT: cough, hemoptysis Gastrointestinal: ABSENT: abdominal pain, constipation, diarrhea, hematemesis, hematochezia, nausea, vomiting Genitourinary: ABSENT: dysuria, hematuria Musculoskeletal: ABSENT: joint swelling Integumentary: ABSENT: rash, wounds Neurological: ABSENT: abnormal gait, abnormal speech, confusion, dizziness, foc al weakness, syncope Psychiatric: ABSENT: anxiety, depression, homidical ideation, suicidal ideation Endocrine: ABSENT: cold intolerance, heat intolerance, polydipsia, polyuria Hematologic/Lymphatic: ABSENT: easy bleeding, easy bruising Physical Exam Vital Signs: Temp Pulse Resp BP Pulse Ox 97.5 F 64 19 125/56 L 100 09/07/18 03:45 09/07/18 03:45 09/07/18 03:45 09/07/18 03:45 09/07/18 03:45 Intake & Output 09/05/18 09/06/18 09/07/18 11:59 11:59 11:59 Weight 58.8 kg General appearance: PRESENT: no acute distress, cooperative, thin, well- developed, well-nourished Head exam: PRESENT: atraumatic, normocephalic Eye exam: PRESENT: conjunctiva pink, EOMI, PERRLA. ABSENT: scleral icterus Ear exam: PRESENT: normal external ear exam Mouth exam: PRESENT: moist, tongue midline Neck exam: ABSENT: carotid bruit, JVD, lymphadenopathy, thyromegaly Respiratory exam: PRESENT: clear to auscultation tatyana. ABSENT: rales, rhonchi, wheezes Cardiovascular exam: PRESENT: RRR. ABSENT: diastolic murmur, rubs, systolic murmur Pulses: PRESENT: normal dorsalis pedis pul Vascular exam: PRESENT: normal capillary refill GI/Abdominal exam: PRESENT: normal bowel sounds, soft, tenderness - Left lower quadrant pain without guarding. ABSENT: distended, guarding, mass, organolmegaly, rebound Rectal exam: PRESENT: deferred Extremities exam: PRESENT: full ROM. ABSENT: calf tenderness, clubbing, pedal edema Neurological exam: PRESENT: alert, awake, oriented to person, oriented to place, oriented to time, oriented to situation, CN II-XII grossly intact. ABSENT: motor sensory deficit Psychiatric exam: PRESENT: appropriate affect, normal mood. ABSENT: homicidal ideation, suicidal ideation Skin exam: PRESENT: dry, intact, warm. ABSENT: cyanosis, rash Results Laboratory Results: 09/06/18 18:59 09/06/18 18:59 09/06/18 09/06/18 09/06/18 18:59 18:59 18:59 WBC 6.7 RBC 4.25 L Hgb 10.4 L Hct 32.7 L MCV 77 L MCH 24.5 L MCHC 31.8 L RDW 17.9 H Plt Count 182 Seg Neutrophils % 66.1 Lymphocytes % 21.6 Monocytes % 9.2 Eosinophils % 2.4 Basophils % 0.7 Absolute Neutrophils 4.4 Absolute Lymphocytes 1.4 Absolute Monocytes 0.6 Absolute Eosinophils 0.2 Absolute Basophils 0.0 Retic Count (auto) Absolute Retic Sodium 139.9 Potassium 4.4 Chloride 104 Carbon Dioxide 25 Anion Gap 11 BUN 22 H Creatinine 1.05 Est GFR ( Amer) > 60 Est GFR (Non-Af Amer) > 60 Glucose 91 Calcium 9.6 Iron TIBC % Saturation Ferritin Total Bilirubin 0.4 AST 23 ALT 25 Alkaline Phosphatase 94 Total Protein 7.0 Albumin 4.4 Lipase 143.3 Vitamin B12 Folate Urine Color Urine Appearance Urine pH Ur Specific Amalia Urine Protein Urine Glucose (UA) Urine Ketones Urine Blood Urine Nitrite Ur Leukocyte Esterase Urine RBC (Auto) Blood Type Antibody Screen 09/06/18 09/06/18 09/06/18 18:59 18:59 19:18 WBC RBC Hgb Hct MCV MCH MCHC RDW Plt Count Seg Neutrophils % Lymphocytes % Monocytes % Eosinophils % Basophils % Absolute Neutrophils Absolute Lymphocytes Absolute Monocytes Absolute Eosinophils Absolute Basophils Retic Count (auto) 1.80 Absolute Retic 0.077 Sodium Potassium Chloride Carbon Dioxide Anion Gap BUN Creatinine Est GFR ( Amer) Est GFR (Non-Af Amer) Glucose Calcium Iron 26.2 L TIBC 468 H % Saturation 6 Ferritin 6.88 L Total Bilirubin AST ALT Alkaline Phosphatase Total Protein Albumin Lipase Vitamin B12 190.0 L Folate 19.40 Urine Color YELLOW Urine Appearance CLEAR Urine pH 6.0 Ur Specific Amalia 1.012 Urine Protein NEGATIVE Urine Glucose (UA) NEGATIVE Urine Ketones TRACE H Urine Blood NEGATIVE Urine Nitrite NEGATIVE Ur Leukocyte Esterase NEGATIVE Urine RBC (Auto) 0 Blood Type Antibody Screen 09/06/18 23:37 WBC RBC Hgb Hct MCV MCH MCHC RDW Plt Count Seg Neutrophils % Lymphocytes % Monocytes % Eosinophils % Basophils % Absolute Neutrophils Absolute Lymphocytes Absolute Monocytes Absolute Eosinophils Absolute Basophils Retic Count (auto) Absolute Retic Sodium Potassium Chloride Carbon Dioxide Anion Gap BUN Creatinine Est GFR ( Amer) Est GFR (Non-Af Amer) Glucose Calcium Iron TIBC % Saturation Ferritin Total Bilirubin AST ALT Alkaline Phosphatase Total Protein Albumin Lipase Vitamin B12 Folate Urine Color Urine Appearance Urine pH Ur Specific Amalia Urine Protein Urine Glucose (UA) Urine Ketones Urine Blood Urine Nitrite Ur Leukocyte Esterase Urine RBC (Auto) Blood Type O POSITIVE Antibody Screen NEGATIVE Impressions: Abdomen/Pelvis CT 09/06/18 21:20 IMPRESSION: Possible transient ileus, but follow-up is recommended if pain persists. Mild cardiomegaly. Severe emphysema. 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 (3) COPD (chronic obstructive pulmonary disease) Qualifiers: Emphysema type: unspecified Is this a current diagnosis for this admission?: Yes Plan: Compensated continue outpatient regiment - Time Time Spent with patient: 35 or more minutes - Inpatient Certification Medical Necessity: Need Close Monitoring Due to Risk of Patient Decompensation
[2018-09-07] MEDS: HEPARIN SOD (PORCINE) 5,000 UNIT/ML 1 ML SYRINGE SUBCUT SCH ×2 (06:02→13:18)
[2018-09-07 06:12] LABS: ABSOLUTE EOSINOPHILS # (AUTO) 0.2 10^3/uL (0.0-0.6); ABSOLUTE LYMPHOCYTES (AUTO) 1.2 10^3/uL (0.5-4.7); ABSOLUTE MONOCYTES (AUTO) 0.5 10^3/uL (0.1-1.4); ABSOLUTE NEUT (AUTO) 2.9 10^3/uL (1.7-8.2); BASOPHILS % (AUTO) 0.7 % (0-2); EOSINOPHILS % (AUTO) 3.6 % (0-6); HEMATOCRIT 29.5 % (37.9-51.0); HEMOGLOBIN 9.6 g/dL (13.5-17.0); LYMPHOCYTES % (AUTO) 24.3 % (13-45); MEAN CORPUSCULAR HEMOGLOBIN 24.8 pg (27.0-33.4); MEAN CORPUSCULAR HGB CONC 32.6 g/dL (32.0-36.0); MEAN CORPUSCULAR VOLUME 76 fl (80-97); PLATELET COUNT 146 10^3/uL (150-450); RED BLOOD COUNT 3.88 10^6/uL (4.35-5.55); RED CELL DISTRIBUTION WIDTH 18.1 % (11.5-14.0); SEGMENTED NEUTROPHILS % (AUTO) 60.4 % (42-78); TOTAL CELLS COUNTED % (AUTO) 100 %; WHITE BLOOD COUNT 4.8 10^3/uL (4.0-10.5)
[2018-09-07 06:34] LABS: ANION GAP 10 (5-19); BLOOD UREA NITROGEN 18 mg/dL (7-20); CALCIUM 9.3 mg/dL (8.4-10.2); CARBON DIOXIDE 24 mmol/L (22-30); CHLORIDE 105 mmol/L (98-107); GLUCOSE 88 mg/dL (75-110); POTASSIUM 4.1 mmol/L (3.6-5.0); SODIUM 139.3 mmol/L (137-145)
--- NOTE | 2018-09-07 09:55 | PDOC CONSULTATION ---
Consultation Consult Date: 09/07/18 Attending physician:: SUNI ELLINGTON Consult reason:: heme positive stools History of Present Illness Admission Date/PCP: 09/07/18 00:03 SAMANTHA LOVE MD History of Present Illness: YOEL WYMAN is a 77 year old male patient was admitted by the hospitalist service after presenting to the ED patient was seen in the past in 2016, at that time had EGD done has has had gastric bypass surgery has had an admission prior to this apparently had rectal bleeding was seen by surgery and had hemorrhoid banding it was determined that he had a colonoscopy in the past, since it is not on [employer], it must have an done at an outpatient ASC he has had a drop of hgb following hydration he notes a previous history of alcohol use there is no melena patient will be admitted and monitored he will be started on a PPI will need EGD will need to get details of his findings on his previous colonoscopy Past Medical History Cardiac Medical History: Reports: Myocardial Infarction - NSTEMI, Hyperlipidema, Hypertension Pulmonary Medical History: Reports: Chronic Obstructive Pulmonary Disease (COPD) Psychiatric Medical History: Reports: Alcohol Dependency Past Surgical History Past Surgical History: Reports: Orthopedic Surgery, Other - exploratory laparotomy for ulcers. Social History Lives with: Spouse/Significant other Smoking Status: Smoker,Current Status Unk Last Time Smoked: 5 years ago Frequency of Alcohol Use: Heavy Hx Recreational Drug Use: No Drugs: None Hx Prescription Drug Abuse: No - Advance Directive Resuscitation Status: Full Code Family History Family History: Reviewed & Not Pertinent Parental Family History Reviewed: Yes Children Family History Reviewed: Unknown Sibling(s) Family History Reviewed.: Unknown Medication/Allergy Home Medications: Albuterol Sulfate [Proair Hfa Inhalation Aerosol 8.5 gm Mdi] 1 puff IH Q4HP PRN 09/07/18 Fluticasone/Vilanterol [Breo Ellipta 100-25 Mcg INH] 1 puff IH Q12 09/07/18 Lisinopril [Prinivil 10 mg Tablet] 10 mg PO DAILY 09/07/18 Allergies/Adverse Reactions: No Known Allergies Allergy (Verified 09/06/18 18:15) Review of Systems Constitutional: ABSENT: fever(s), headache(s), night sweats, weakness Eyes: ABSENT: visual disturbances Ears: ABSENT: hearing changes Nose, Mouth, and Throat: ABSENT: mouth pain, sore throat Cardiovascular: ABSENT: edema, orthropnea Respiratory: ABSENT: dyspnea, hemoptysis Gastrointestinal: ABSENT: dysphagia Genitourinary: ABSENT: hematuria Musculoskeletal: ABSENT: deformity, joint swelling Integumentary: ABSENT: lesions, pruritus Neurological: ABSENT: syncope, tingling, vertigo Endocrine: ABSENT: polydipsia, polyphagia, polyuria Hematologic/Lymphatic: ABSENT: easy bruising Physical Exam Vital Signs: Temp Pulse Resp BP Pulse Ox 97.9 F 66 19 140/74 H 100 09/07/18 07:57 09/07/18 07:57 09/07/18 07:57 09/07/18 07:57 09/07/18 07:57 Intake & Output 09/06/18 09/07/18 09/08/18 06:59 06:59 06:59 Output Total 200 Balance -200 Weight 58.8 kg General appearance: PRESENT: no acute distress, well-developed, well-nourished Head exam: PRESENT: atraumatic, normocephalic Eye exam: PRESENT: EOMI, PERRLA. ABSENT: nystagmus, scleral icterus Mouth exam: PRESENT: neck supple Throat exam: ABSENT: tonsillar exudate, tonsillogmegaly Neck exam: ABSENT: meningismus, tenderness, thyromegaly Respiratory exam: PRESENT: symmetrical, unlabored. ABSENT: tachypnea, wheezes Cardiovascular exam: PRESENT: RRR, +S1, +S2 GI/Abdominal exam: PRESENT: soft. ABSENT: rebound, rigid, tenderness Extremities exam: ABSENT: joint swelling, pedal edema Musculoskeletal exam: PRESENT: full ROM Neurological exam: PRESENT: oriented to time, oriented to situation, CN II-XII grossly intact Focused psych exam: ABSENT: restlessness Skin exam: PRESENT: normal color. ABSENT: mottled, pallor, urticaria, vesicles Results Laboratory Results: 09/07/18 05:00 09/07/18 05:00 09/06/18 09/06/18 09/06/18 18:59 18:59 18:59 WBC 6.7 RBC 4.25 L Hgb 10.4 L Hct 32.7 L MCV 77 L MCH 24.5 L MCHC 31.8 L RDW 17.9 H Plt Count 182 Seg Neutrophils % 66.1 Lymphocytes % 21.6 Monocytes % 9.2 Eosinophils % 2.4 Basophils % 0.7 Absolute Neutrophils 4.4 Absolute Lymphocytes 1.4 Absolute Monocytes 0.6 Absolute Eosinophils 0.2 Absolute Basophils 0.0 Retic Count (auto) Absolute Retic Sodium 139.9 Potassium 4.4 Chloride 104 Carbon Dioxide 25 Anion Gap 11 BUN 22 H Creatinine 1.05 Est GFR ( Amer) > 60 Est GFR (Non-Af Amer) > 60 Glucose 91 Calcium 9.6 Iron TIBC % Saturation Ferritin Total Bilirubin 0.4 AST 23 ALT 25 Alkaline Phosphatase 94 Total Protein 7.0 Albumin 4.4 Lipase 143.3 Vitamin B12 Folate Urine Color Urine Appearance Urine pH Ur Specific [place] Urine Protein Urine Glucose (UA) Urine Ketones Urine Blood Urine Nitrite Ur Leukocyte Esterase Urine RBC (Auto) Blood Type Antibody Screen 09/06/18 09/06/18 09/06/18 18:59 18:59 19:18 WBC RBC Hgb Hct MCV MCH MCHC RDW Plt Count Seg Neutrophils % Lymphocytes % Monocytes % Eosinophils % Basophils % Absolute Neutrophils Absolute Lymphocytes Absolute Monocytes Absolute Eosinophils Absolute Basophils Retic Count (auto) 1.80 Absolute Retic 0.077 Sodium Potassium Chloride Carbon Dioxide Anion Gap BUN Creatinine Est GFR ( Amer) Est GFR (Non-Af Amer) Glucose Calcium Iron 26.2 L TIBC 468 H % Saturation 6 Ferritin 6.88 L Total Bilirubin AST ALT Alkaline Phosphatase Total Protein Albumin Lipase Vitamin B12 190.0 L Folate 19.40 Urine Color YELLOW Urine Appearance CLEAR Urine pH 6.0 Ur Specific [place] 1.012 Urine Protein NEGATIVE Urine Glucose (UA) NEGATIVE Urine Ketones TRACE H Urine Blood NEGATIVE Urine Nitrite NEGATIVE Ur Leukocyte Esterase NEGATIVE Urine RBC (Auto) 0 Blood Type Antibody Screen 09/06/18 09/07/18 09/07/18 23:37 05:00 05:00 WBC 4.8 RBC 3.88 L Hgb 9.6 L Hct 29.5 L MCV 76 L MCH 24.8 L MCHC 32.6 RDW 18.1 H Plt Count 146 L Seg Neutrophils % 60.4 Lymphocytes % 24.3 Monocytes % 11.0 Eosinophils % 3.6 Basophils % 0.7 Absolute Neutrophils 2.9 Absolute Lymphocytes 1.2 Absolute Monocytes 0.5 Absolute Eosinophils 0.2 Absolute Basophils 0.0 Retic Count (auto) Absolute Retic Sodium 139.3 Potassium 4.1 Chloride 105 Carbon Dioxide 24 Anion Gap 10 BUN 18 Creatinine 0.91 Est GFR ( Amer) > 60 Est GFR (Non-Af Amer) > 60 Glucose 88 Calcium 9.3 Iron TIBC % Saturation Ferritin Total Bilirubin AST ALT Alkaline Phosphatase Total Protein Albumin Lipase Vitamin B12 Folate Urine Color Urine Appearance Urine pH Ur Specific [place] Urine Protein Urine Glucose (UA) Urine Ketones Urine Blood Urine Nitrite Ur Leukocyte Esterase Urine RBC (Auto) Blood Type O POSITIVE Antibody Screen NEGATIVE Impressions: Abdomen/Pelvis CT 09/06/18 21:20 IMPRESSION: Possible transient ileus, but follow-up is recommended if pain persists. Mild cardiomegaly. Severe emphysema. Assessment & Plan - Diagnosis (1) Heme positive stool Plan: has had a drop in Hgb since admission history of gastric surgery in the past previous EGD was 3 years ago needs EGD to rule out for possible anastomotic ulcer Risks, benefits and alternatives are discussed with the patient in detail further recommendations to follow started on PPI for now (2) Anemia Qualifiers: Anemia type: unspecified type Qualified Code(s): D64.9 - Anemia, unspecified Plan: chronic likely multifactorial will need to get details of his previous colonoscopy previous hemorrhoid banding performed here further recommendations to follow - Time Time Spent: 50 to 70 Minutes
[2018-09-07] MEDS: ASPIRIN 81 MG TABLET, ENT COATED PO SCH (10:06)
[2018-09-07] MEDS: FOLIC ACID 1 MG TABLET PO SCH (10:06)
[2018-09-07] MEDS: THIAMINE HCL 100 MG TABLET PO SCH (10:06)
[2018-09-07] MEDS ORDERED: NALOXONE HCL INJ/PF 0.4 MG/1 ML SDV ONE (10:29)
[2018-09-07] MEDS ORDERED: ONDANSETRON HCL INJ/PF 4 MG/2 ML SDV ONE (10:29)
[2018-09-07] MEDS ORDERED: DIPHENHYDRAMINE HCL 50 MG/ML VIAL ONE (10:29)
[2018-09-07] MEDS ORDERED: EPINEPHRINE INJ 1 MG/10 ML DISP.SYRIN ONE (10:30)
[2018-09-07] MEDS ORDERED: FLUMAZENIL INJ 0.5 MG/5 ML VIAL ONE (10:30)
[2018-09-07] MEDS ORDERED: GLUCAGON,HUMAN RECOMB 1 MG INJ ONE (10:30)
[2018-09-07] MEDS: MIDAZOLAM 2 MG/2 ML INJ ONE ×2 (12:14→12:20)
[2018-09-07] MEDS: FENTANYL CITRATE INJ/PF 100 MCG/2 ML AMPUL ONE ×2 (12:16→12:18)
--- NOTE | 2018-09-07 12:26 | Operative Report ---
Operative Report DATE OF SURGERY: 09/07/18 Operative Report: The risks benefits and alternatives of the procedure explained to the patient in detail and informed consent is obtained.A GIF Olympus video scope was inserted into the patient's mouth and hypopharynx, the esophagus is identified intubated and insufflated, the scope was then advanced through the esophagus stomach and duodenum, retroflexion maneuver is done, the esophagus stomach and first and second portions of the duodenum examined. PREOPERATIVE DIAGNOSIS: Heme positive stool POSTOPERATIVE DIAGNOSIS: History of gastric bypass anatomy in the past. Gastritis noted biopsy. Slight hiatal hernia. normal afferent and efferent loops. No GI bleeding noted OPERATION: EGD with biopsy SURGEON: SUNI ELLINGTON ANESTHESIA: Moderate Sedation TISSUE REMOVED OR ALTERED: As noted above. COMPLICATIONS: None. ESTIMATED BLOOD LOSS: None. INTRAOPERATIVE FINDINGS: As noted above. PROCEDURE: Patient tolerated the procedure well. No immediate postprocedure complications are noted. Patient is discharged back to his room in good condition. Resume regular diet. Resume regular activity level No acute GI bleeding noted 2 to 3-week follow-up to discuss findings. Wait on the pathology.
--- NOTE | 2018-09-07 13:56 | PDOC PROGRESS REPORT ---
Subjective Progress Note for:: 09/07/18 Subjective:: This is a 77 year old male with a past medical history of severe emphysema, alcohol dependence without withdrawal, alcohol-related gastritis, remote peptic ulcer disease with partial gastrectomy and internal hemorrhoids with banding 2 months ago who presented with dark stools and hemoglobin drop from his baseline. This morning, patient is comfortable. He says he had another black, tarry stool early this morning. Denies abdominal pain. No vomiting or hematemesis. He is going for EGD soon. Reason For Visit: ANEMIA INTERNAL HEMORRHOID BLEED Physical Exam Vital Signs: Temp Pulse Resp BP Pulse Ox 97.5 F 71 17 124/66 95 09/07/18 11:01 09/07/18 12:50 09/07/18 12:50 09/07/18 12:50 09/07/18 12:50 Intake & Output 09/06/18 09/07/18 09/08/18 06:59 06:59 06:59 Intake Total 200 Output Total 200 Balance -200 200 Weight 129 lb 10.109 oz General appearance: PRESENT: no acute distress, well-developed, well-nourished Head exam: PRESENT: atraumatic, normocephalic Eye exam: PRESENT: conjunctiva pink, EOMI, PERRLA. ABSENT: scleral icterus Ear exam: PRESENT: normal external ear exam Mouth exam: PRESENT: moist, tongue midline Neck exam: ABSENT: carotid bruit, JVD, lymphadenopathy, thyromegaly Respiratory exam: PRESENT: clear to auscultation tatyana. ABSENT: rales, rhonchi, wheezes Cardiovascular exam: PRESENT: RRR. ABSENT: diastolic murmur, rubs, systolic murmur Pulses: PRESENT: normal dorsalis pedis pul GI/Abdominal exam: PRESENT: normal bowel sounds, soft. ABSENT: distended, guarding, mass, organolmegaly, rebound, tenderness Rectal exam: PRESENT: deferred Extremities exam: PRESENT: full ROM. ABSENT: calf tenderness, clubbing, pedal edema Neurological exam: PRESENT: alert, awake, oriented to person, oriented to place, oriented to time, oriented to situation, CN II-XII grossly intact. ABSENT: motor sensory deficit Results Laboratory Results: 09/07/18 05:00 09/07/18 05:00 09/06/18 09/06/18 09/06/18 18:59 18:59 18:59 WBC 6.7 RBC 4.25 L Hgb 10.4 L Hct 32.7 L MCV 77 L MCH 24.5 L MCHC 31.8 L RDW 17.9 H Plt Count 182 Seg Neutrophils % 66.1 Lymphocytes % 21.6 Monocytes % 9.2 Eosinophils % 2.4 Basophils % 0.7 Absolute Neutrophils 4.4 Absolute Lymphocytes 1.4 Absolute Monocytes 0.6 Absolute Eosinophils 0.2 Absolute Basophils 0.0 Retic Count (auto) Absolute Retic Sodium 139.9 Potassium 4.4 Chloride 104 Carbon Dioxide 25 Anion Gap 11 BUN 22 H Creatinine 1.05 Est GFR ( Amer) > 60 Est GFR (Non-Af Amer) > 60 Glucose 91 Calcium 9.6 Iron TIBC % Saturation Ferritin Total Bilirubin 0.4 AST 23 ALT 25 Alkaline Phosphatase 94 Total Protein 7.0 Albumin 4.4 Lipase 143.3 Vitamin B12 Folate Urine Color Urine Appearance Urine pH Ur Specific [place] Urine Protein Urine Glucose (UA) Urine Ketones Urine Blood Urine Nitrite Ur Leukocyte Esterase Urine RBC (Auto) Blood Type Antibody Screen 09/06/18 09/06/18 09/06/18 18:59 18:59 19:18 WBC RBC Hgb Hct MCV MCH MCHC RDW Plt Count Seg Neutrophils % Lymphocytes % Monocytes % Eosinophils % Basophils % Absolute Neutrophils Absolute Lymphocytes Absolute Monocytes Absolute Eosinophils Absolute Basophils Retic Count (auto) 1.80 Absolute Retic 0.077 Sodium Potassium Chloride Carbon Dioxide Anion Gap BUN Creatinine Est GFR ( Amer) Est GFR (Non-Af Amer) Glucose Calcium Iron 26.2 L TIBC 468 H % Saturation 6 Ferritin 6.88 L Total Bilirubin AST ALT Alkaline Phosphatase Total Protein Albumin Lipase Vitamin B12 190.0 L Folate 19.40 Urine Color YELLOW Urine Appearance CLEAR Urine pH 6.0 Ur Specific [place] 1.012 Urine Protein NEGATIVE Urine Glucose (UA) NEGATIVE Urine Ketones TRACE H Urine Blood NEGATIVE Urine Nitrite NEGATIVE Ur Leukocyte Esterase NEGATIVE Urine RBC (Auto) 0 Blood Type Antibody Screen 09/06/18 09/07/18 09/07/18 23:37 05:00 05:00 WBC 4.8 RBC 3.88 L Hgb 9.6 L Hct 29.5 L MCV 76 L MCH 24.8 L MCHC 32.6 RDW 18.1 H Plt Count 146 L Seg Neutrophils % 60.4 Lymphocytes % 24.3 Monocytes % 11.0 Eosinophils % 3.6 Basophils % 0.7 Absolute Neutrophils 2.9 Absolute Lymphocytes 1.2 Absolute Monocytes 0.5 Absolute Eosinophils 0.2 Absolute Basophils 0.0 Retic Count (auto) Absolute Retic Sodium 139.3 Potassium 4.1 Chloride 105 Carbon Dioxide 24 Anion Gap 10 BUN 18 Creatinine 0.91 Est GFR ( Amer) > 60 Est GFR (Non-Af Amer) > 60 Glucose 88 Calcium 9.3 Iron TIBC % Saturation Ferritin Total Bilirubin AST ALT Alkaline Phosphatase Total Protein Albumin Lipase Vitamin B12 Folate Urine Color Urine Appearance Urine pH Ur Specific [place] Urine Protein Urine Glucose (UA) Urine Ketones Urine Blood Urine Nitrite Ur Leukocyte Esterase Urine RBC (Auto) Blood Type O POSITIVE Antibody Screen NEGATIVE Impressions: Abdomen/Pelvis CT 09/06/18 21:20 IMPRESSION: Possible transient ileus, but follow-up is recommended if pain persists. Mild cardiomegaly. Severe emphysema. Assessment and Plan - Diagnosis (1) Upper GI bleed Is this a current diagnosis for this admission?: Yes Plan: Hemoglobin dropped from previous baseline of 11.5 to 9.6. He is going for EGD. Continue IV Protonix. (2) Acute blood loss anemia Is this a current diagnosis for this admission?: Yes Plan: Will continue to monitor H&H. (3) COPD (chronic obstructive pulmonary disease) Qualifiers: Emphysema type: unspecified Is this a current diagnosis for this admission?: Yes Plan: Not in exacerbation. Breathing treatments as needed. (4) B12 deficiency Is this a current diagnosis for this admission?: Yes Plan: Will give vitamin B12 replacement. - Time Time Spent with patient: 15-24 minutes
[2018-09-07] MEDS ORDERED: CYANOCOBALAMIN (VITAMIN B-12) INJ 1000 MCG/1 ML VIAL IM ONE (15:00)
[2018-09-07] MEDS ORDERED: ACETAMINOPHEN 325 MG TABLET ONE (16:28)
[2018-09-07] MEDS ORDERED: ACETAMINOPHEN 325 MG TABLET PO PRN (16:30)
[2018-09-07] MEDS: ATORVASTATIN CALCIUM 40 MG TABLET PO SCH (21:35)
[2018-09-07] MEDS ORDERED: IRON SUCROSE COMPLEX INJ/PF 100 MG/5 ML SDV IV ONE (22:20)
[2018-09-07] MEDS: PANTOPRAZOLE SODIUM 40 MG VIAL IV SCH (23:16)
[2018-09-08 06:56] LABS: ABSOLUTE EOSINOPHILS # (AUTO) 0.2 10^3/uL (0.0-0.6); ABSOLUTE MONOCYTES (AUTO) 0.5 10^3/uL (0.1-1.4); ABSOLUTE NEUT (AUTO) 3.4 10^3/uL (1.7-8.2); BASOPHILS % (AUTO) 0.6 % (0-2); EOSINOPHILS % (AUTO) 4.1 % (0-6); HEMATOCRIT 29.8 % (37.9-51.0); HEMOGLOBIN 9.7 g/dL (13.5-17.0); LYMPHOCYTES % (AUTO) 19.1 % (13-45); MEAN CORPUSCULAR HEMOGLOBIN 24.8 pg (27.0-33.4); MEAN CORPUSCULAR HGB CONC 32.6 g/dL (32.0-36.0); MEAN CORPUSCULAR VOLUME 76 fl (80-97); MONOCYTES % (AUTO) 9.9 % (3-13); PLATELET COUNT 142 10^3/uL (150-450); RED BLOOD COUNT 3.91 10^6/uL (4.35-5.55); RED CELL DISTRIBUTION WIDTH 18.3 % (11.5-14.0); SEGMENTED NEUTROPHILS % (AUTO) 66.3 % (42-78); TOTAL CELLS COUNTED % (AUTO) 100 %; WHITE BLOOD COUNT 5.1 10^3/uL (4.0-10.5)
[2018-09-08] MEDS: FOLIC ACID 1 MG TABLET PO SCH (10:35)
[2018-09-08] MEDS: THIAMINE HCL 100 MG TABLET PO SCH (10:35)
[2018-09-08] MEDS: ASPIRIN 81 MG TABLET, ENT COATED PO SCH (10:35)
[2018-09-08] MEDS: PANTOPRAZOLE SODIUM 40 MG VIAL IV SCH ×2 (10:35→21:08)
--- NOTE | 2018-09-08 12:03 | PDOC PROGRESS REPORT ---
Subjective Progress Note for:: 09/08/18 Subjective:: patient underwent EGD yesterday and tolerated well he has had gastric bypass surgery in the past and did have some mild inflammation at the anastomosis however both the efferent loop and afferent loop is normal no active signs of GI bleeding noted patient may be anemic based on the fact that he cannot absorb oral iron patient had a colonoscopy done 1 year ago at [facility] had hemorrhoid banding done here with surgery patient may need a bleeding scan if continue to have symptoms there is no direct access to his [place] stomach which could be where the b leeding is coming from however evaluation for that better at a tertiary institution if that were to be the case Reason For Visit: ANEMIA INTERNAL HEMORRHOID BLEED Physical Exam Vital Signs: Temp Pulse Resp BP Pulse Ox 98.2 F 74 16 145/69 H 94 09/08/18 07:26 09/08/18 09:16 09/08/18 09:16 09/08/18 07:26 09/08/18 09:16 Intake & Output 09/07/18 09/08/18 09/09/18 06:59 06:59 06:59 Intake Total 1836 Output Total 200 575 Balance -200 1261 Weight 58.8 kg 53.2 kg General appearance: PRESENT: no acute distress, well-developed Head exam: PRESENT: atraumatic, normocephalic Eye exam: PRESENT: EOMI, PERRLA. ABSENT: nystagmus, periorbital swelling, scleral icterus Mouth exam: PRESENT: moist, neck supple Throat exam: ABSENT: tonsillar exudate, tonsillogmegaly Neck exam: ABSENT: meningismus, tenderness Respiratory exam: PRESENT: symmetrical, unlabored. ABSENT: tachypnea, wheezes Cardiovascular exam: PRESENT: RRR, +S1, +S2 GI/Abdominal exam: PRESENT: soft. ABSENT: rebound, rigid, tenderness Extremities exam: ABSENT: joint swelling, pedal edema Musculoskeletal exam: PRESENT: full ROM Neurological exam: PRESENT: oriented to time, oriented to situation, CN II-XII grossly intact Focused psych exam: ABSENT: restlessness Skin exam: PRESENT: normal color. ABSENT: mottled, urticaria, vesicles Results Laboratory Results: 09/08/18 06:31 09/07/18 05:00 09/08/18 06:31 WBC 5.1 RBC 3.91 L Hgb 9.7 L Hct 29.8 L MCV 76 L MCH 24.8 L MCHC 32.6 RDW 18.3 H Plt Count 142 L Seg Neutrophils % 66.3 Lymphocytes % 19.1 Monocytes % 9.9 Eosinophils % 4.1 Basophils % 0.6 Absolute Neutrophils 3.4 Absolute Lymphocytes 1.0 Absolute Monocytes 0.5 Absolute Eosinophils 0.2 Absolute Basophils 0.0 Impressions: Abdomen/Pelvis CT 09/06/18 21:20 IMPRESSION: Possible transient ileus, but follow-up is recommended if pain persists. Mild cardiomegaly. Severe emphysema. Assessment & Plan - Diagnosis (1) Heme positive stool Is this a current diagnosis for this admission?: Yes Plan: EGD done yesterday did not show any active bleeding recent colonoscopy done elsewhere is negative if at all , a bleeding scan can be done the only other locations would be the [place] stomach vs any where in the small intestine patient has a gastric bypass and therefore his anemia could be due to the fact that oral iron cannot be absorbed since iron is absorbed in the proximal duod enum which is traditionally bypassed in the surgery however will continue to follow H/H bleeding scan if at all no further colonoscopy is needed at this time (2) Anemia Qualifiers: Anemia type: unspecified type Qualified Code(s): D64.9 - Anemia, unspecified Is this a current diagnosis for this admission?: Yes - Time Time Spent with patient: 15-24 minutes
--- NOTE | 2018-09-08 13:31 | PDOC PROGRESS REPORT ---
Subjective Progress Note for:: 09/08/18 Subjective:: spoke to patient and family patient had gastric surgery for ulcers and has a Bilroth 2 anastomosis no evidence of ulcers patient as noted had a colonoscopy in the past , 1 yea ago was negative it turns out that patient also had a M2A capsule test done 7 years ago in [place] for the same reason at that point had some sort of GI bleeding and at that time colonoscopy and M2A capsule test was negative patient himself initially did not want to have it done, however is speaking to ,she is insistent that it gets done prior to his discharge his daughter had stated she would prefer to be done as an outpatient patient has decided that he wants to proceed for inpatient colonoscopy may need nuclear bleeding scan to follow patient states that his stools are clearing up have written orders and spoke with patient's RN will schedule him for colonoscopy Reason For Visit: ANEMIA INTERNAL HEMORRHOID BLEED Physical Exam Vital Signs: Temp Pulse Resp BP Pulse Ox 98.5 F 68 15 133/75 H 98 09/08/18 11:55 09/08/18 11:55 09/08/18 11:55 09/08/18 11:55 09/08/18 11:55 Intake & Output 09/07/18 09/08/18 09/09/18 06:59 06:59 06:59 Intake Total 1836 773 Output Total 200 575 900 Balance -200 1261 -127 Weight 58.8 kg 53.2 kg General appearance: PRESENT: no acute distress, well-developed, well-nourished Head exam: PRESENT: normocephalic Eye exam: PRESENT: EOMI, PERRLA Mouth exam: PRESENT: moist, neck supple Throat exam: ABSENT: tonsillar exudate, tonsillogmegaly Neck exam: ABSENT: meningismus, tenderness, thyromegaly Respiratory exam: PRESENT: symmetrical, unlabored. ABSENT: tachypnea, wheezes Cardiovascular exam: PRESENT: RRR, +S1, +S2 GI/Abdominal exam: PRESENT: soft. ABSENT: rebound, rigid, tenderness Extremities exam: ABSENT: joint swelling Neurological exam: PRESENT: oriented to time, oriented to situation, CN II-XII grossly intact Focused psych exam: ABSENT: restlessness Skin exam: PRESENT: normal color. ABSENT: mottled, urticaria, vesicles Results Laboratory Results: 09/08/18 06:31 09/07/18 05:00 09/08/18 06:31 WBC 5.1 RBC 3.91 L Hgb 9.7 L Hct 29.8 L MCV 76 L MCH 24.8 L MCHC 32.6 RDW 18.3 H Plt Count 142 L Seg Neutrophils % 66.3 Lymphocytes % 19.1 Monocytes % 9.9 Eosinophils % 4.1 Basophils % 0.6 Absolute Neutrophils 3.4 Absolute Lymphocytes 1.0 Absolute Monocytes 0.5 Absolute Eosinophils 0.2 Absolute Basophils 0.0 Impressions: Abdomen/Pelvis CT 09/06/18 21:20 IMPRESSION: Possible transient ileus, but follow-up is recommended if pain persists. Mild cardiomegaly. Severe emphysema. Assessment & Plan - Diagnosis (1) Heme positive stool Is this a current diagnosis for this admission?: Yes Plan: I did advise patient that repeating a colonoscopy may be low yield given the fact that he had this recently done in [place] he does have a history of NSAID use and therefore could still be proximal small intestine however since he had M2A capsule in the past, may need nuclear bleeding scan if the problem would persists spoke with all members of the family but more importantly , patient is agreeable to now proceed further recommendations to follow (2) Anemia Qualifiers: Anemia type: unspecified type Qualified Code(s): D64.9 - Anemia, unspe cified Is this a current diagnosis for this admission?: Yes - Time Time Spent with patient: 15-24 minutes - family conference time 20min
[2018-09-08] MEDS ORDERED: PEG 3350/NA SULF,BICARB,CL/KCL 4000 ML PO PRN (14:10)
--- NOTE | 2018-09-08 14:33 | PDOC PROGRESS REPORT ---
Subjective Progress Note for:: 09/08/18 Subjective:: This is a 77 year old male with a past medical history of severe emphysema, alcohol dependence without withdrawal, alcohol-related gastritis, remote peptic ulcer disease with partial gastrectomy and internal hemorrhoids with banding 2 months ago who presented with dark stools and hemoglobin drop from his baseline. 09/07: This morning, patient is comfortable. He says he had another black, tarry stool early this morning. Denies abdominal pain. No vomiting or hematemesis. He is going for EGD soon. 09/08: No acute event overnight. He had EGD yesterday 09/07/18 which was only remarkable for mild gastritis. He says he does not have abdominal pain but feels tender on the lower quadrants when he presses on it. Hemoglobin today is stable at 9.7. He says he had dark stool this AM. Patient advised to have nursing staff assess his stool. He is scheduled for colonoscopy. Reason For Visit: ANEMIA INTERNAL HEMORRHOID BLEED Physical Exam Vital Signs: Temp Pulse Resp BP Pulse Ox 98.5 F 68 15 133/75 H 98 09/08/18 11:55 09/08/18 11:55 09/08/18 11:55 09/08/18 11:55 09/08/18 11:55 Intake & Output 09/07/18 09/08/18 09/09/18 06:59 06:59 06:59 Intake Total 1836 773 Output Total 200 575 900 Balance -200 1261 -127 Weight 129 lb 10.109 oz 117 lb 4.575 oz General appearance: PRESENT: no acute distress, well-developed, well-nourished Head exam: PRESENT: atraumatic, normocephalic Eye exam: PRESENT: conjunctiva pink, EOMI, PERRLA. ABSENT: scleral icterus Ear exam: PRESENT: normal external ear exam Mouth exam: PRESENT: moist, tongue midline Neck exam: ABSENT: carotid bruit, JVD, lymphadenopathy, thyromegaly Respiratory exam: PRESENT: clear to auscultation tatyana. ABSENT: rales, rhonchi, wheezes Cardiovascular exam: PRESENT: RRR. ABSENT: diastolic murmur, rubs, systolic murmur Pulses: PRESENT: normal dorsalis pedis pul GI/Abdominal exam: PRESENT: normal bowel sounds, soft, tenderness - mild direct hypog tenderness. ABSENT: distended, guarding, mass, organolmegaly, rebound Results Laboratory Results: 09/08/18 06:31 09/07/18 05:00 09/08/18 06:31 WBC 5.1 RBC 3.91 L Hgb 9.7 L Hct 29.8 L MCV 76 L MCH 24.8 L MCHC 32.6 RDW 18.3 H Plt Count 142 L Seg Neutrophils % 66.3 Lymphocytes % 19.1 Monocytes % 9.9 Eosinophils % 4.1 Basophils % 0.6 Absolute Neutrophils 3.4 Absolute Lymphocytes 1.0 Absolute Monocytes 0.5 Absolute Eosinophils 0.2 Absolute Basophils 0.0 Impressions: Abdomen/Pelvis CT 09/06/18 21:20 IMPRESSION: Possible transient ileus, but follow-up is recommended if pain persists. Mild cardiomegaly. Severe emphysema. Assessment and Plan - Diagnosis (1) GI bleed Is this a current diagnosis for this admission?: Yes Plan: Hemoglobin dropped from previous baseline of 11.5 to 9.6. He had EGD yesterday 09/07/18 which was only remarkable for mild gastritis. He says he does not have abdominal pain but feels tender on the lower quadrants when he presses on it. Hemoglobin today is stable at 9.7. He says he had dark stool this AM. Patient advised to have nursing staff assess his stool. He is scheduled for colonoscopy. (2) Acute blood loss anemia Is this a current diagnosis for this admission?: Yes Plan: Hemoglobin today is stable at 9.7. (3) COPD (chronic obstructive pulmonary disease) Qualifiers: Emphysema type: unspecified Is this a current diagnosis for this admission?: Yes Plan: Not in exacerbation. Breathing treatments as needed. (4) B12 deficiency Is this a current diagnosis for this admission?: Yes Plan: Given vitamin B12 replacement. - Time Time Spent with patient: 25-34 minutes
[2018-09-08] MEDS: ATORVASTATIN CALCIUM 40 MG TABLET PO SCH (21:08)
[2018-09-09] MEDS: ASPIRIN 81 MG TABLET, ENT COATED PO SCH (10:09)
[2018-09-09] MEDS: THIAMINE HCL 100 MG TABLET PO SCH (10:10)
[2018-09-09] MEDS: FOLIC ACID 1 MG TABLET PO SCH (10:10)
--- NOTE | 2018-09-09 10:16 | RADIOLOGY REPORT (SQ) ---
EXAM DESCRIPTION: KUB/ABDOMEN (SINGLE VIEW) COMPLETED DATE/TIME: 09/09/2018 9:07 am REASON FOR STUDY: assess for obstructive pattern COMPARISON: CT abdomen pelvis 09/06/2018, 07/14/2017 NUMBER OF VIEWS: One view. TECHNIQUE: Supine radiographic image of the abdomen acquired. LIMITATIONS: None. FINDINGS: BOWEL GAS PATTERN: Mild gaseous distension of colon and small bowel, question ileus. Ther e is a rectal air bubble present. Stomach decompressed. CALCIFICATIONS: No suspicious calcifications. SOFT TISSUES: No gross mass or suggestion of organomegaly. HARDWARE: Orthopedic hardware left innominate bone BONES: No acute fracture. No worrisome bone lesions. OTHER: No other significant finding. IMPRESSION: Probable ileus TECHNICAL DOCUMENTATION: JOB ID: [id number] [employer]- All Rights Reserved Reading location - IP/workstation name: [email or web address]
[2018-09-09] MEDS: PANTOPRAZOLE SODIUM 40 MG VIAL IV SCH (10:35)
[2018-09-09] MEDS ORDERED: DIPHENHYDRAMINE HCL 50 MG/ML VIAL ONE (11:21)
[2018-09-09] MEDS ORDERED: ONDANSETRON HCL INJ/PF 4 MG/2 ML SDV ONE (11:21)
[2018-09-09] MEDS ORDERED: GLUCAGON,HUMAN RECOMB 1 MG INJ ONE (11:22)
[2018-09-09] MEDS ORDERED: FLUMAZENIL INJ 0.5 MG/5 ML VIAL ONE (11:22)
[2018-09-09] MEDS ORDERED: NALOXONE HCL INJ/PF 0.4 MG/1 ML SDV ONE (11:22)
[2018-09-09] MEDS ORDERED: EPINEPHRINE INJ 1 MG/10 ML DISP.SYRIN ONE (11:22)
[2018-09-09] MEDS: MIDAZOLAM 2 MG/2 ML INJ ONE ×3 (11:43→11:50)
[2018-09-09] MEDS: FENTANYL CITRATE INJ/PF 100 MCG/2 ML AMPUL ONE ×2 (11:45→11:48)
--- NOTE | 2018-09-09 12:14 | Operative Report ---
Operative Report DATE OF SURGERY: 09/09/18 Operative Report: The risks, benefits and alternatives of the procedure including the risk of bleeding, perforation requiring surgery have been explained to the patient in detail and informed consent has been obtained. The patient is brought back to the endoscopy suite and placed in the left, lateral decubital position. Conscious sedation medications are provided. A rectal examination is done which did not reveal any masses, tears or fissures. An Olympus videoscope was introduced into the patient's rectum. The scope was then carefully advanced all the way to the cecum. The cecum was identified by the usual anatomical landmarks including the ileocecal valve as well as the appendiceal office. Photodocumentation is obtained. The scope was then sequentially pulled back via the rest segments of the colon including the ascending colon, hepatic flexure, transverse colon, splenic flexure, descending colon and finally into the rectosigmoid portions of the colon. Retroflexion maneuver is performed. PREOPERATIVE DIAGNOSIS: Heme positive stool POSTOPERATIVE DIAGNOSIS: Internal hemorrhoids. No GI bleeding noted OPERATION: Colonoscopy with biopsy SURGEON: SUNI ELLINGTON ANESTHESIA: Moderate Sedation - 5 mg of Versed, 75 mcg of fentanyl. TISSUE REMOVED OR ALTERED: As noted above. COMPLICATIONS: None. ESTIMATED BLOOD LOSS: None. INTRAOPERATIVE FINDINGS: As noted above. PROCEDURE: Patient tolerated the procedure well. No immediate postprocedure comp occasions are noted. Patient discharged back to his room in good condition. Resume regular diet Resume regular activity level 2 to 3-week follow-up as an outpatient Further recommendations to follow
--- NOTE | 2018-09-09 14:06 | PDOC DISCHARGE SUMMARY ---
General - Admit/Disc Date/PCP Admission Date/Primary Care Provider: 09/07/18 00:03 SAMANTHA LOVE MD Discharge Date: 09/09/18 - Discharge Diagnosis (1) Lower GI bleed Is this a current diagnosis for this admission?: Yes Summary: Most probably hemorrhoidal (2) Acute blood loss anemia Is this a current diagnosis for this admission?: Yes (3) COPD (chronic obstructive pulmonary disease) Is this a current diagnosis for this admission?: Yes (4) B12 deficiency Is this a current diagnosis for this admission?: Yes - Additional Information Resuscitation Status: Full Code Home Medications: Albuterol Sulfate [Proair Hfa Inhalation Aerosol 8.5 gm Mdi] 1 puff IH Q4HP PRN 09/07/18 Aspirin [Ecotrin 81 mg EC Tablet] 81 mg PO DAILY 09/07/18 Fluticasone/Umeclidin/Vilanter [Trelegy 100-62.5-25 Mcg Ellipta 14 Dose/Dpi] 1 puff IH DAILY 09/07/18 Lisinopril [Prinivil 10 mg Tablet] 10 mg PO DAILY 09/07/18 Tiotropium [place] [Spiriva Handihaler 5 Cap/Kit (18 Mcg/Cap)] 1 cap IH DAILY 09/07/18 History of Present Illness History of Present Illness: YOEL WYMAN is a 77 year old male with a past medical history of severe emphysema, alcohol dependence without withdrawal, alcohol-related gastritis, remote peptic ulcer disease with partial gastrectomy and internal hemorrhoids with banding 2 months ago. Patient presents with diffuse abdominal pain both in the epigastrium as well as left lower quadrant associated with nausea without vomiting, dark stools and a single episode of diarrhea prompting evaluation emergency room where he is found to have a hemoglobin 10.4 from 11.52 months ago. Occult stool was positive. He is placed on IV Protonix and referred to the hospitalist for admission. Patient denies new medication or NSAID use but admits persistent alcohol dependence consuming 1 bottle of wine per day. Hospital Course Hospital Course: This is 77 years old male patient with past medical history of coronary artery disease, NSTEMI, COPD, alcohol abuse and alcohol-related gastritis presented with chief complaint of weakness, diffuse abdominal pain, nausea and vomiting and an episode of dark stool. His stool for occult blood is positive. GI consultation was made to who performed upper endoscopy which alleviated gastritis and colonoscopy which is positive for hemorrhoid. He recommended to start the patient on regular diet and cleared him for discharge and follow-up with him in 3 weeks as outpatient. His hemoglobin maintained between 10.4 and 9.6. This morning I seen patient propped up in bed and enjoying his lunch. He is awake alert oriented. He reports he is free of abdominal pain. Patient strongly advised that and encourage to remain sober. He reported that his stop drinking for about a month. I will send him home with Protonix 40 mg p.o. daily Physical Exam Vital Signs: Temp Pulse Resp BP Pulse Ox 97.9 F 63 15 101/61 96 09/09/18 09:25 09/09/18 12:20 09/09/18 12:20 09/09/18 12:20 09/09/18 12:20 Intake & Output 09/08/18 09/09/18 09/10/18 06:59 06:59 06:59 Intake Total 1836 1073 200 Output Total 575 900 Balance 1261 173 200 Weight 53.2 kg 53.9 kg General appearance: PRESENT: no acute distress, well-developed, well-nourished Head exam: PRESENT: atraumatic, normocephalic Eye exam: PRESENT: conjunctiva pink, EOMI, PERRLA. ABSENT: scleral icterus Ear exam: PRESENT: normal external ear exam Mouth exam: PRESENT: moist, tongue midline Neck exam: ABSENT: carotid bruit, JVD, lymphadenopathy, thyromegaly Respiratory exam: PRESENT: clear to auscultation tatyana. ABSENT: rales, rhonchi, wheezes Cardiovascular exam: PRESENT: RRR. ABSENT: diastolic murmur, rubs, systolic murmur Pulses: PRESENT: normal dorsalis pedis pul Vascular exam: PRESENT: normal capillary refill GI/Abdominal exam: PRESENT: normal bowel sounds, soft. ABSENT: distended, guarding, mass, organolmegaly, rebound, tenderness Rectal exam: PRESENT: deferred Extremities exam: PRESENT: full ROM. ABSENT: calf tenderness, clubbing, pedal edema Neurological exam: PRESENT: alert, awake, oriented to person, oriented to place, oriented to time, oriented to situation, CN II-XII grossly intact. ABSENT: motor sensory deficit Psychiatric exam: PRESENT: appropriate affect, normal mood. ABSENT: homicidal ideation, suicidal ideation Skin exam: PRESENT: dry, intact, warm. ABSENT: cyanosis, rash Results Laboratory Results: 09/08/18 06:31 09/07/18 05:00 Impressions: Abdomen/Pelvis CT 09/06/18 21:20 IMPRESSION: Possible transient ileus, but follow-up is recommended if pain persists. Mild cardiomegaly. Severe emphysema. KUB X-Ray 09/09/18 07:00 IMPRESSION: Probable ileus Qualifiers - * PATIENT BEING DISCHARGED WITH ANY OF THE FOLLOWING DIAGNOSIS: No Acute Heart Failure Is this a Heart Failure Patient?: No
[2018-09-09 14:52] VITALS: BP 121/80
== END 2018-09-09 15:45 | disposition home or self-care (01) | DRG 392 ==
LOC: ER 17:29 → EH 09-07 00:03 → 3N 09-07 01:53 → 4W 09-08 19:49
PROVIDERS: ADMIT Internal Medicine; ATTEND Internal Medicine
PROC: 0DB68ZX Excision of Stomach, Via Natural or Artificial Opening Endoscopic, Diagnostic (ICD-10-PCS; 2018-09-07)
PROC: 0DJD8ZZ Inspection of Lower Intestinal Tract, Via Natural or Artificial Opening Endoscopic (ICD-10-PCS; principal; 2018-09-09 12:30)
DX: K29.20 Alcoholic gastritis without bleeding (principal); D62 Acute posthemorrhagic anemia; J43.9 Emphysema, unspecified; K64.8 Other hemorrhoids; K44.9 Diaphragmatic hernia without obstruction or gangrene; E78.5 Hyperlipidemia, unspecified; I10 Essential (primary) hypertension; F10.20 Alcohol dependence, uncomplicated; E53.8 Deficiency of other specified B group vitamins; K21.9 Gastro-esophageal reflux disease without esophagitis; I25.10 Atherosclerotic heart disease of native coronary artery without angina pectoris; R63.4 Abnormal weight loss; R19.5 Other fecal abnormalities; Z98.84 Bariatric surgery status; I25.2 Old myocardial infarction; Z87.891 Personal history of nicotine dependence; Z79.82 Long term (current) use of aspirin; Z91.14 Patient's other noncompliance with medication regimen; Z83.6 Family history of other diseases of the respiratory system
CPT/HCPCS: 36415; 43239; 45378; 74018; 74177; 80048; 80053; 80307; 81001; 82607; 82728; 82746; 83540; 83550; 83690; 85025; 85045; 85610; 85730; 86850; 86900; 86901; 88305; 88342; 96374; 96376; 99285; J0171; J1200; J1610; J1756; J2250; J2310; J2405; J3010; J3420; J3490; S0164

== ENCOUNTER → 2018-09-27 | Outpatient (CLI) | payer MEDICARE ==
--- NOTE | 2018-09-27 16:14 | RADIOLOGY REPORT (SQ) ---
EXAM DESCRIPTION: CHEST 2 VIEWS COMPLETED DATE/TIME: 09/27/2018 3:47 pm REASON FOR STUDY: ACUTE BRONCHITIS COMPARISON: 07/14/2017 EXAM PARAMETERS: NUMBER OF VIEWS: two views TECHNIQUE: Digital Frontal and Lateral radiographic views of the chest acquired. RADIATION DOSE: NA LIMITATIONS: none FINDINGS: LUNGS AND PLEURA: Lungs are hyperlucent and hyperinflated but clear. No pleural effusion. No pneumothorax. MEDIASTINUM AND HILAR STRUCTURES: No masses or contour abnormalities. HEART AND VASCULAR STRUCTURES: Heart normal size. No evidence for failure. BONES: No acute findings. HARDWARE: None in the chest. OTHER: No other significant finding. IMPRESSION: NO ACUTE RADIOGRAPHIC FINDING IN THE CHEST. TECHNICAL DOCUMENTATION: JOB ID: [id number] [employer]- All Rights Reserved Reading location - IP/workstation name: [email or web address]
== END ==
LOC: RAD 15:28
PROVIDERS: ATTEND Family Medicine Geriatric Medicine
DX: J20.9 Acute bronchitis, unspecified (principal); J44.9 Chronic obstructive pulmonary disease, unspecified
CPT/HCPCS: 71046

== ENCOUNTER → 2019-03-20 | Outpatient (CLI) | payer MEDICARE ==
[2019-03-20 08:36] LABS: ABSOLUTE EOSINOPHILS # (AUTO) 0.1 10^3/uL (0.0-0.6); ABSOLUTE LYMPHOCYTES (AUTO) 1.2 10^3/uL (0.5-4.7); ABSOLUTE MONOCYTES (AUTO) 0.8 10^3/uL (0.1-1.4); BASOPHILS % (AUTO) 0.6 % (0-2); EOSINOPHILS % (AUTO) 1.2 % (0-6); HEMATOCRIT 36.9 % (37.9-51.0); HEMOGLOBIN 11.7 g/dL (13.5-17.0); LYMPHOCYTES % (AUTO) 14.3 % (13-45); MEAN CORPUSCULAR HGB CONC 31.7 g/dL (32.0-36.0); MEAN CORPUSCULAR VOLUME 79 fl (80-97); PLATELET COUNT 144 10^3/uL (150-450); RED BLOOD COUNT 4.67 10^6/uL (4.35-5.55); RED CELL DISTRIBUTION WIDTH 19.5 % (11.5-14.0); SEGMENTED NEUTROPHILS % (AUTO) 73.9 % (42-78); TOTAL CELLS COUNTED % (AUTO) 100 %; WHITE BLOOD COUNT 8.1 10^3/uL (4.0-10.5)
[2019-03-20 09:00] LABS: ANION GAP 7 (5-19); BLOOD UREA NITROGEN 12 mg/dL (7-20); CALCIUM 9.3 mg/dL (8.4-10.2); CARBON DIOXIDE 26 mmol/L (22-30); CHLORIDE 105 mmol/L (98-107); GLUCOSE 94 mg/dL (75-110); POTASSIUM 4.5 mmol/L (3.6-5.0)
== END ==
LOC: LAB 07:58
PROVIDERS: ATTEND Family Medicine Geriatric Medicine
DX: D64.9 Anemia, unspecified (principal); E53.9 Vitamin B deficiency, unspecified; J44.9 Chronic obstructive pulmonary disease, unspecified; Z79.899 Other long term (current) drug therapy
CPT/HCPCS: 36415; 80048; 82607; 85025

== ENCOUNTER → 2019-05-02 | Outpatient (CLI) | payer MEDICARE ==
[2019-05-02 08:55] LABS: APPEARANCE,URINE CLEAR; BILIRUBIN,URINE NEGATIVE (NEGATIVE); COLOR,URINE YELLOW; GLUCOSE, URINE NEGATIVE (NEGATIVE); KETONES,URINE NEGATIVE (NEGATIVE); LEUKOCYTE ESTERASE,URINE NEGATIVE (NEGATIVE); NITRITE,URINE NEGATIVE (NEGATIVE); PROTEIN,URINE NEGATIVE (NEGATIVE); URINE SPECIFIC GRAVITY 1.012; UROBILINOGEN,URINE NEGATIVE mg/dL (<2.0)
== END ==
LOC: LAB 08:37
PROVIDERS: ATTEND Family Medicine Geriatric Medicine
DX: N39.0 Urinary tract infection, site not specified (principal)
CPT/HCPCS: 81001; 87086

== ENCOUNTER → 2019-07-07 | Outpatient (CLI) | payer MEDICARE ==
[2019-07-07 09:18] LABS: ASPARTATE AMINO TRANSFERASE 30 U/L (17-59); CHOLESTEROL 158.52 mg/dL (0-200); TRIGLYCERIDES 129 mg/dL (<150)
[2019-07-07 09:29] LABS: DIRECT LDL 79 mg/dL (<100)
== END ==
LOC: LAB 08:12
PROVIDERS: ATTEND Family Medicine Geriatric Medicine
DX: E78.5 Hyperlipidemia, unspecified (principal); Z79.899 Other long term (current) drug therapy
CPT/HCPCS: 36415; 80061; 84450; 84460

== ENCOUNTER → 2019-07-13 | Outpatient (CLI) | payer MEDICARE ==
[2019-07-13 11:33] LABS: ANION GAP 9 (5-19); BLOOD UREA NITROGEN 21 mg/dL (7-20); CALCIUM 8.7 mg/dL (8.4-10.2); CARBON DIOXIDE 25 mmol/L (22-30); CHLORIDE 107 mmol/L (98-107); GLUCOSE 73 mg/dL (75-110); POTASSIUM 4.1 mmol/L (3.6-5.0); URIC ACID 7.1 mg/dL (3.5-8.5)
--- NOTE | 2019-07-13 14:14 | RADIOLOGY REPORT (SQ) ---
EXAM DESCRIPTION: FOOT LEFT COMPLETE COMPLETED DATE/TIME: 07/13/2019 10:55 am REASON FOR STUDY: L FOOT PAIN M79.673 PAIN IN UNSPECIFIED FOOT COMPARISON: None. NUMBER OF VIEWS: Three views. TECHNIQUE: AP, lateral and oblique radiographic images acquired of the left foot. LIMITATIONS: None. FINDINGS: MINERALIZATION: Osteopenia. BONES: No acute fracture or dislocation. No worrisome bone lesions. JOINTS: Hallux valgus. There are some small margin erosions in the head of the 1st metatarsal. SOFT TISSUES: No soft tissue swelling. No foreign body. OTHER: No other significant finding. IMPRESSION: Hallux valgus. There are some small marginal erosions in the head of the 1st metatarsal . TECHNICAL DOCUMENTATION: JOB ID: [id number] 2010 [employer]- All Rights Reserved Reading location - IP/workstation name: [email or web address]
== END ==
LOC: RAD 10:07
PROVIDERS: ATTEND Family Medicine Geriatric Medicine
DX: M20.12 Hallux valgus (acquired), left foot (principal); M79.672 Pain in left foot; Z79.899 Other long term (current) drug therapy
CPT/HCPCS: 36415; 80048; 84550

== ENCOUNTER → 2019-10-12 | Outpatient (CLI) | payer MEDICARE ==
--- NOTE | 2019-10-12 12:39 | RADIOLOGY REPORT (SQ) ---
EXAM DESCRIPTION: U/S ABDOMEN COMPLETE W/DOPPLER IMAGES COMPLETED DATE/TIME: 10/12/2019 10:55 am REASON FOR STUDY: ABD PAIN (R10.9) R10.9 UNSPECIFIED ABDOMINAL PAIN COMPARISON: None. TECHNIQUE: Dynamic and static grayscale images acquired of the abdomen and recorded on PACS. Additio nal selected color Doppler and spectral images recorded. Note: Study does not meet criteria for complete doppler/duplex scan LIMITATIONS: None. FINDINGS: PANCREAS: No ductal dilatation. LIVER: No masses. Echotexture normal. LIVER VASCULATURE: Normal directional flow of the main portal vein and hepatic veins. GALLBLADDER: No stones. Normal wall thickness. No pericholecystic fluid. ULTRASOUND-DETECTED DO'S SIGN: Negative. INTRAHEPATIC DUCTS AND COMMON DUCT: CBD and intrahepatic ducts normal caliber. No filling defects. INFERIOR VENA CAVA: Normal flow. AORTA: No aneurysm but there is mild ectasia of the distal aorta. The maximum diameter is 23 mm. RIGHT KIDNEY: Normal size, 10.3 cm. Normal echogenicity. No solid or suspicious masses. No hyd ronephrosis. No calcifications. LEFT KIDNEY: Normal size, 10.8 cm. Normal echogenicity. No solid or suspicious masses. No hydr onephrosis. No calcifications. SPLEEN: Normal size. No solid masses. PERITONEAL AND PLEURAL SPACES: No ascites or effusions. OTHER: No other significant finding. IMPRESSION: There is mild ectasia of the infrarenal abdominal aorta but no aneurysm. TECHNICAL DOCUMENTATION: JOB ID: [id number] 2010 [employer]- All Rights Reserved Reading location - IP/workstation name: [email or web address]
== END ==
LOC: RAD 09:51
PROVIDERS: ATTEND Family Medicine Geriatric Medicine
DX: R10.9 Unspecified abdominal pain (principal)
CPT/HCPCS: 76700; 93976

== ENCOUNTER → 2019-11-02 | Outpatient (CLI) | payer MEDICARE ==
[2019-11-02 09:07] LABS: ABSOLUTE BASOPHILS # (AUTO) 0.1 10^3/uL (0.0-0.2); ABSOLUTE EOSINOPHILS # (AUTO) 0.1 10^3/uL (0.0-0.6); ABSOLUTE MONOCYTES (AUTO) 0.6 10^3/uL (0.1-1.4); ABSOLUTE NEUT (AUTO) 3.4 10^3/uL (1.7-8.2); EOSINOPHILS % (AUTO) 2.6 % (0-6); HEMATOCRIT 37.1 % (37.9-51.0); HEMOGLOBIN 12.3 g/dL (13.5-17.0); LYMPHOCYTES % (AUTO) 20.2 % (13-45); MEAN CORPUSCULAR HEMOGLOBIN 25.6 pg (27.0-33.4); MEAN CORPUSCULAR HGB CONC 33.1 g/dL (32.0-36.0); MEAN CORPUSCULAR VOLUME 77 fl (80-97); MONOCYTES % (AUTO) 10.8 % (3-13); PLATELET COUNT 179 10^3/uL (150-450); RED BLOOD COUNT 4.81 10^6/uL (4.35-5.55); SEGMENTED NEUTROPHILS % (AUTO) 65.4 % (42-78); TOTAL CELLS COUNTED % (AUTO) 100 %; WHITE BLOOD COUNT 5.2 10^3/uL (4.0-10.5)
[2019-11-02 09:31] LABS: ALBUMIN 4.1 g/dL (3.5-5.0); ALKALINE PHOSPHATASE 83 U/L (38-126); AMYLASE 110 U/L (30-110); ANION GAP 5 (5-19); ASPARTATE AMINO TRANSFERASE 23 U/L (17-59); BILIRUBIN,TOTAL 0.8 mg/dL (0.2-1.3); BLOOD UREA NITROGEN 16 mg/dL (7-20); CALCIUM 9.2 mg/dL (8.4-10.2); CARBON DIOXIDE 27 mmol/L (22-30); CHLORIDE 104 mmol/L (98-107); GLUCOSE 100 mg/dL (75-110); POTASSIUM 4.5 mmol/L (3.6-5.0); TOTAL PROTEIN 6.7 g/dL (6.3-8.2)
== END ==
LOC: OD 08:06
PROVIDERS: ATTEND Family Medicine Geriatric Medicine
DX: R10.9 Unspecified abdominal pain (principal); Z79.899 Other long term (current) drug therapy
CPT/HCPCS: 36415; 80053; 82150; 83690; 85025

== ENCOUNTER 2020-02-15 06:54 | Day surgery (SDC) | payer MEDICARE ==
[~2020-02-15 06:54] MED LIST: DORZOLAMIDE HCL 2%/TIMOLOL MALEAT 0.5% OPH SOLN 10 ML OD PRN; KETOROLAC TROMETHAMINE 0.45% 4 DROP/0.4 ML DROPERETTE OD PRN; PREDNISOLONE ACETATE 1% OPH SUSP 5 ML OD PRN
[2020-02-15] MEDS ORDERED: MIDAZOLAM 2 MG/2 ML INJ ONE (06:57)
[2020-02-15] MEDS ORDERED: FENTANYL CITRATE INJ/PF 100 MCG/2 ML AMPUL ONE (06:57)
[2020-02-15] MEDS ORDERED: EPINEPHRINE INJ/PF 1 MG/1 ML AMPULE ONE (07:07)
[2020-02-15] MEDS: TETRACAINE HCL 0.5% OPH SOLN 4 ML OD PRN ×3 (07:08→07:45)
[2020-02-15] MEDS ORDERED: LIDOCAINE 1%/PHENYLEPHRINE 1.5% 1 ML VIAL ONE (07:08)
[2020-02-15] MEDS: CYCLOPENTOLATE 0.2%/PHENYLEPHRINE 1% OPH SOLN 2 ML OD PRN ×3 (07:08→07:32)
[2020-02-15] MEDS: TROPICAMIDE 1% OPH SOLN 15 ML OD PRN ×3 (07:08→07:32)
[2020-02-15] MEDS: BESIFLOXACIN HCL 0.6% OPH SUSP 5 ML BOTTLE OD PRN ×3 (07:08→08:56)
[2020-02-15] MEDS ORDERED: CHONDR SU A NA/HYALUR INTRAOC KIT (SURGICARE) ONE (07:10)
--- NOTE | 2020-02-15 12:17 | Operative Report ---
Operative Report-[facility] Operative Report: DATE OF SURGERY: 02/15/2020 PREOPERATIVE DIAGNOSIS: Cataract, right eye POSTOPERATIVE DIAGNOSIS: Cataract, right eye OPERATION: Cataract extraction with insertion of an IOL of the right eye. Intraocular Lens Model: [23.5 sn60 WF] Patient underwent surgery for difficulty seeing medicine bottles SURGEON: Filemon Cheek MD ANESTHESIA: Topical PROCEDURE: After obtaining appropriate consent, the patient's right eye was prepped and draped in a sterile fashion as well as the surgeon in the sterile manner and cataract surgery was started. First a paracentesis blade was used to make a side-port incision. Viscoelastic was used to inflate the anterior chamber. Next a 2.4 mm incision was made with a 2.4 mm blade, clear corneal temporarily. A continuous capsulorrhexis was made using a cystotome and Utrata forceps. Following this hydrodissection was carried out to make the tawnya fully loose and mobile and it was rotated. Following this, a divide and conquer technique was used to phacoemulsify the tawnya. The remaining cortex was removed with an irrigation/aspiration. Provisc was instilled into the capsular bag to inflate the bag. The intraocular lens was placed. The remaining viscoelastic material was removed with irrigation/aspiration. Following this, the incision was found to be watertight. Besivance and Cosopt was instilled into the eye and a protective shield was placed over the eye. The patient was reurned to the postoperative recovery in a stable condition.
== END 2020-02-15 08:38 ==
LOC: SC 06:54
PROVIDERS: ATTEND Internal Medicine
DX: H25.11 Age-related nuclear cataract, right eye (principal); H43.813 Vitreous degeneration, bilateral; J44.9 Chronic obstructive pulmonary disease, unspecified; I10 Essential (primary) hypertension; K21.9 Gastro-esophageal reflux disease without esophagitis; E78.5 Hyperlipidemia, unspecified; Z87.891 Personal history of nicotine dependence; Z79.82 Long term (current) use of aspirin
CPT/HCPCS: 66984; V2632; J2250; J3490 ×2; A9270; J0171; J3010; 142

== ENCOUNTER 2020-03-07 09:32 | Day surgery (SDC) | payer MEDICARE ==
[~2020-03-07 09:32] MED LIST changes: +CHONDR SU A NA/HYALUR INTRAOC KIT (SURGICARE) ONE; -DORZOLAMIDE HCL 2%/TIMOLOL MALEAT 0.5% OPH SOLN 10 ML OD PRN; +DORZOLAMIDE HCL 2%/TIMOLOL MALEAT 0.5% OPH SOLN 10 ML OS PRN; +EPINEPHRINE INJ/PF 1 MG/1 ML AMPULE ONE; -KETOROLAC TROMETHAMINE 0.45% 4 DROP/0.4 ML DROPERETTE OD PRN; +KETOROLAC TROMETHAMINE 0.45% 4 DROP/0.4 ML DROPERETTE OS PRN; +LIDOCAINE 1%/PHENYLEPHRINE 1.5% 1 ML VIAL ONE; -PREDNISOLONE ACETATE 1% OPH SUSP 5 ML OD PRN; +PREDNISOLONE ACETATE 1% OPH SUSP 5 ML OS PRN
[2020-03-07] MEDS: TETRACAINE HCL 0.5% OPH SOLN 4 ML OS PRN ×3 (09:58→10:39)
[2020-03-07] MEDS: TROPICAMIDE 1% OPH SOLN 15 ML OS PRN ×3 (09:59→10:25)
[2020-03-07] MEDS: BESIFLOXACIN HCL 0.6% OPH SUSP 5 ML BOTTLE OS PRN ×3 (09:59→10:25)
[2020-03-07] MEDS: CYCLOPENTOLATE 0.2%/PHENYLEPHRINE 1% OPH SOLN 2 ML OS PRN ×3 (09:59→10:25)
--- NOTE | 2020-03-08 06:56 | Operative Report ---
Operative Report-[facility] Operative Report: DATE OF SURGERY: 03/07/2020 PREOPERATIVE DIAGNOSIS: Cataracts, left eye POSTOPERATIVE DIAGNOSIS: Cataract, left eye OPERATION: Cataract extraction with insertion of an IOL of the left eye. Intraocular Lens Model: [24.5 diopter SN 60 WF] Patient underwent surgery for difficulty with glare at night SURGEON: Filemon Cheek MD ANESTHESIA: Topical PROCEDURE: After obtaining appropriate consent, the patient's left eye was prepped and draped in a sterile fashion as well as the surgeon in the sterile manner and cataract surgery was started. First a paracentesis blade was used to make a side-port incision. Viscoelastic was used to inflate the anterior chamber. Next a 2.4 mm incision was made with a 2.4 mm blade, clear corneal temporarily. A continuous capsulorrhexis was made using a cystotome and Utrata forceps. Following this hydrodissection was carried out to make the lens fully loose and mobile and it was rotated 90 degrees. Following this, a divide and conquer technique was used to phacoemulsify the lens. The remaining cortex was removed with an irrigation/aspiration. Provisc was instilled into the capsular bag to inflate the bag.The intraocular lens was placed. The remaining viscoelastic material was removed with irrigation/aspiration. Following this, the incision was found to be watertight. Besivance and Cosopt was instilled into the eye and a protective shield was placed over the eye. The patient was returned to the postoperative recovery in a stable condition.
== END 2020-03-07 11:39 | disposition home or self-care (01) ==
LOC: SC 09:32
PROVIDERS: ATTEND Internal Medicine
DX: H25.12 Age-related nuclear cataract, left eye (principal); Z96.1 Presence of intraocular lens; Z87.891 Personal history of nicotine dependence; J44.9 Chronic obstructive pulmonary disease, unspecified; I10 Essential (primary) hypertension; K21.9 Gastro-esophageal reflux disease without esophagitis; E78.5 Hyperlipidemia, unspecified
CPT/HCPCS: 66984; V2632; J3490 ×2; A9270; J0171

== ENCOUNTER 2020-04-01 08:06 | Day surgery (SDC) | payer MEDICARE ==
[~2020-04-01 08:06] MED LIST changes: -CHONDR SU A NA/HYALUR INTRAOC KIT (SURGICARE) ONE; -DORZOLAMIDE HCL 2%/TIMOLOL MALEAT 0.5% OPH SOLN 10 ML OS PRN; -EPINEPHRINE INJ/PF 1 MG/1 ML AMPULE ONE; -KETOROLAC TROMETHAMINE 0.45% 4 DROP/0.4 ML DROPERETTE OS PRN; -LIDOCAINE 1%/PHENYLEPHRINE 1.5% 1 ML VIAL ONE; -PREDNISOLONE ACETATE 1% OPH SUSP 5 ML OS PRN; +PROPOFOL INJ 200 MG/20 ML VIAL IV ONE
--- NOTE | 2020-04-01 09:54 | Operative Report ---
Operative Report DATE OF SURGERY: 04/01/20 Operative Report: The risks benefits and alternatives of the procedure explained to the patient in detail and informed consent is obtained.A GIF Olympus video scope was inserted into the patient's mouth and hypopharynx, the esophagus is identified intubated and insufflated, the scope was then advanced through the esophagus stomach and duodenum, retroflexion maneuver is done the esophagus stomach and first and second portions of the duodenum examined PREOPERATIVE DIAGNOSIS: Epigastric pain history of peptic ulcer disease POSTOPERATIVE DIAGNOSIS: anastomotic inflammation. afferent and efferent loops are patent. esophagitis OPERATION: EGD with biopsy SURGEON: SUNI ELLINGTON ANESTHESIA: LMAC TISSUE REMOVED OR ALTERED: As noted above. COMPLICATIONS: None. ESTIMATED BLOOD LOSS: None. INTRAOPERATIVE FINDINGS: As noted above. PROCEDURE: Patient tolerated the procedure well. No immediate postprocedure complications are noted. Patient is discharged in good condition. Discharge date 04/01/2020. Discharge diet: Regular. Discharge activity: Regular. 2 to 3-week follow-up to discuss findings. Patient is instructed to call the office or proceed to the emergency room should there be any further problems or questions. Wait on the pathology.
[2020-04-01 10:21] VITALS: BP 122/61
== END 2020-04-01 10:25 | disposition home or self-care (01) ==
LOC: END 08:06
PROVIDERS: ATTEND Internal Medicine Gastroenterology
DX: K21.00 Gastro-esophageal reflux disease with esophagitis, without bleeding (principal); K29.50 Unspecified chronic gastritis without bleeding; K63.89 Other specified diseases of intestine; Z79.899 Other long term (current) drug therapy; Z87.11 Personal history of peptic ulcer disease; J43.9 Emphysema, unspecified; Z79.82 Long term (current) use of aspirin; Z87.891 Personal history of nicotine dependence
CPT/HCPCS: 43239; 88305 ×2; J2704; 731; 88342

== ENCOUNTER → 2020-04-17 | Outpatient (CLI) | payer MEDICARE ==
[2020-04-17 10:29] LABS: ABSOLUTE EOSINOPHILS # (AUTO) 0.2 10^3/uL (0.0-0.6); ABSOLUTE LYMPHOCYTES (AUTO) 1.3 10^3/uL (0.5-4.7); ABSOLUTE MONOCYTES (AUTO) 0.8 10^3/uL (0.1-1.4); ABSOLUTE NEUT (AUTO) 4.2 10^3/uL (1.7-8.2); BASOPHILS % (AUTO) 0.5 % (0-2); EOSINOPHILS % (AUTO) 2.5 % (0-6); HEMOGLOBIN 12.5 g/dL (13.5-17.0); LYMPHOCYTES % (AUTO) 20.8 % (13-45); MEAN CORPUSCULAR HEMOGLOBIN 26.4 pg (27.0-33.4); MEAN CORPUSCULAR HGB CONC 32.7 g/dL (32.0-36.0); MEAN CORPUSCULAR VOLUME 81 fl (80-97); MONOCYTES % (AUTO) 11.8 % (3-13); PLATELET COUNT 122 10^3/uL (150-450); RED BLOOD COUNT 4.72 10^6/uL (4.35-5.55); SEGMENTED NEUTROPHILS % (AUTO) 64.4 % (42-78); TOTAL CELLS COUNTED % (AUTO) 100 %; WHITE BLOOD COUNT 6.5 10^3/uL (4.0-10.5)
[2020-04-17 10:55] LABS: ANION GAP 9 (5-19); BLOOD UREA NITROGEN 18 mg/dL (7-20); CALCIUM 9.3 mg/dL (8.4-10.2); CARBON DIOXIDE 25 mmol/L (22-30); CHLORIDE 105 mmol/L (98-107); CHOLESTEROL 178.89 mg/dL (0-200); GLUCOSE 103 mg/dL (75-110); POTASSIUM 4.5 mmol/L (3.6-5.0); TRIGLYCERIDES 153 mg/dL (<150)
[2020-04-17 11:06] LABS: DIRECT LDL 76 mg/dL (<100)
[2020-04-17 11:07] LABS: VLDL CHOLESTEROL 30.6 mg/dL (10-31)
== END ==
LOC: OD 09:10
PROVIDERS: ATTEND Family Medicine Geriatric Medicine
DX: E78.5 Hyperlipidemia, unspecified (principal); I10 Essential (primary) hypertension; E87.1 Hypo-osmolality and hyponatremia; Z79.899 Other long term (current) drug therapy
CPT/HCPCS: 36415; 80048; 80061; 84460; 85025